=== PATIENT | female | born 2000 | race Caucasian/White ===

== ENCOUNTER 2023-04-01 07:49 | Outpatient (RCR) | payer BC, SELFPAY ==
--- NOTE | 2023-04-01 08:52 | OPREHPOC ---
Outpatient Therapy Plan of Care This is a Multidisciplinary Plan of Care that may contain components documented by all disciplines (PT, OT, and ST.) PT Problem 1 PT Problem #1 Knowledge Deficit PT Goal 1 Goal *indep with HEP *good understanding of managing vestibular issues PT Problem 2 PT Problem #2 Impaired Vestibular Syste PT Goal 1 Goal decrease vestibular symptoms, to improve mobility and activity level: 1* Dizziness Handicap Index score of 16/100 no symptoms with: 2* supine to sit 3* sit to stand 4* walking 50' with head turns R/L 3x each 5* walking 50' with head motions up/down 3x each 6*picking something up off floor
--- NOTE | 2023-04-01 08:52 | PTOPEVAL1 ---
Assessment and note entered by Mallory Buckley, PT Evaluation Information Assessment Status Evaluation Diagnosis dizziness, imbalance Onset September 2022 Subjective Information slow progression of dizziness, since September- gradual increase; no history of dizziness; does have car sickness and motion sickness take meds for control, migraines and anxiety symptoms: spinning and disoriented- last 10-15 min at most increase symptoms: not consistent- sit>stand, when wake up in AM, lie down to standing; is worst first thing in AM and at the end of day--better mid day; decrease symptoms: hold still , sit and relax 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 Self assessment Dizziness Handicap Index score of 40/100 Her risk factors include: sinus issues, migraines- now managed by meds, history of car sickness. With the evaluation, the Sania Hallpike test was positive to the R, for Ant/post canal/ BPPV; Eply performed with good clearing Education and issued handouts: general vestibular system, BPPV, post Eply precautions, safety precautions, Kristofer Earl for home clearance; To talk with pharmacist about over the counter allergy/sinus meds that would be good with her current scripts. Skilled PT services are indicated for vestibular rehab. She is to call for questions, or additional appointments as vestibular symptoms increase. Plan of Care Interventions Neuro Re-education,Patient Education, Therapeutic Exercise PT Services Indicated Yes Treatment Frequency and 0-2x/wk, depending upon her vestibular symptoms Duration The
--- NOTE | 2023-05-02 11:14 | PTOPDC ---
Assessment and note entered by Mallory Buckley, PT Discharge Information Assessment PT Clinical Summary Phuong received the PT evaluation for BPPV on 04-01-23 and did not require any further treatment. Discharge PT at this time; the goals were not addressed. Plan of Care PT Services Indicated No
== END 2023-05-02 14:26 | disposition home or self-care (01) ==
LOC: ANHPT 07:49
PROVIDERS: Visit Provider Otolaryngology
DX: H81.11 Benign paroxysmal vertigo, right ear (principal)
CPT/HCPCS: 95992; 97161

== ENCOUNTER 2024-06-17 01:23 | Day surgery (SDC) | payer OTHER, SELFPAY ==
[2024-05-31 13:08] VITALS: BMI 26.6
--- OUTSIDE RECORDS SUMMARY | 2024-06-17 01:26 | XMS_ITS | Referral Summary ---
Author Organization [facility] [address] Address [address] [place] [address] Phone Care Team Providers Care Financial Secretary Name Role Phone Sonia Stallworth OBEDIENCE TRAINER Primary Care Provider [phone] Encounters Date Type Department Care Team Description 06/16/2024 1:30 PM BURNISHER Telemedicine [facility] General Neurology [address] [place] [phone] Richard Mcclendon MD Intractable migraine with aura without status migrainosus (Primary Dx) 05/10/2024 Telephone [facility] General Neurology [address] [place] [phone] Richard Mcclendon MD Emgality PA 05/10/2024 Telephone [facility] General Neurology [address] [place] [address] Advanced Medicine 6th [place] [address] [place] [phone] Kristine Abdi RN 04/16/2024 2:00 PM BURNISHER Office Visit [facility] Primary Care at [address] [place] [address] Serenity Islas NP Abdominal pain, RLQ (right lower quadrant) (Primary Dx); Gastroesophageal reflux disease without esophagitis 04/13/2024 1:26 PM BURNISHER - 04/13/2024 6:19 PM BURNISHER Emergency [facility] Emergency Department [address] [place] [address] Petey Bautista MD Abdominal pain (Primary Dx) Discharge Disposition: Discharge to home or self care from Last 3 Months Allergies Active Allergy Reactions Criticality Noted Date Comments Rimegepant Other (See comments) Low 01/02/2024 Hair loss Medications albuterol HFA (PROVENTIL HFA,VENTOLIN HFA,PROAIR HFA) 90 mcg/actuation inhaler Inhale 2 puffs every 6 (six) hours as needed for wheezing 3 each 4 10/06/19 24 025 Active valACYclovir (VALTREX) 1 gram tablet 1 tablet (1,000 mg total) 08/26/19 24 Active galcanezumab-gnlm (Emgality Syringe) 120 mg/mL syringeIndication s:Migraine Prevention Inject 240 mg under the skin every 30 (thirty) days for 30 days, THEN 120 mg every 30 (thirty) days. 01/02/20 24 025 Active metoprolol XL (TOPROL-XL) 25 mg extended release tabletIndications :POTS (postural orthostatic tachycardia syndrome) Take 2 tablets (50 mg total) by mouth daily 01/02/20 24 Active ubrogepant (Ubrelvy) 100 mg tabletIndications :Intractable migraine with aura without status migrainosus Take 1 tablet (100 mg total) by mouth once as needed for migraine May repeat dose once in 2 hours if no relief. Do not exceed 2 doses in 24 hours. 01/02/20 24 025 Active drospirenone-ethi nyl estradioL (Marissa, 28,) 3-0.02 mg per tabletIndications :Oral contraceptive pill surveillance Take 1 tablet by mouth daily 28 tablet 12 02/02/20 24 Active acetaminophen-cod eine (TYLENOL with CODEINE #3) 300-30 mg per tablet Take 1 tablet by mouth every 4 (four) hours as needed for pain 30 tablet 02/23/20 24 Active busPIRone (BUSPAR) 10 mg tabletIndications :Anxiety Take 1 tablet (10 mg total) by mouth 2 (two) times a day 180 tablet 1 03/12/20 24 025 Active psyllium (METAMUCIL) powder Take 1 packet by mouth 3 (three) times a day 283 g 12/10/20 24 025 Active metoprolol XL (TOPROL-XL) 50 mg extended release tablet Take 1 tablet (50 mg total) by mouth every morning 03/23/[address] (PROTONIX) 40 mg EC tabletIndications :Gastroesophageal reflux disease without esophagitis TAKE 1 TABLET(40 MG) BY MOUTH DAILY 30 tablet 1 05/10/19 25 Active HYDROcodone-aceta minophen (NORCO) 5-325 mg per tabletIndications :Pain Take 1 tablet by mouth every 6 (six) hours as needed for pain 20 tablet 04/13/20 24 025 Discontinued Active Problems Problem Noted Date Diagnosed Date Abdominal pain, RLQ (right lower quadrant) 04/16 Liver lesion 02/19/2024 Assessment & Plan (02/19/2024 11:34 AM CDT): Liver lesion likely hemangioma was initially seen on US. Patient underwent MRI abd that did not show any liver lesions. I suspect lesion may have been cyst with debris that has since resolved. Regardless, no concerning lesions were seen on MRI. I recommended patient get another US in 6 months to confirm there is nothing concerning. If lesion is again seen, will get MRI with eovist here. No follow-up visit is needed at this time. Abdominal pain 02/19/2024 Assessment & Plan (02/19/2024 11:37 AM CDT): Patient with abdominal pain x 3 months. She has not noticed a correlation to diet, bowel movements, activity, etc. MRI was normal, no acute findings. Placed order for TGG-IgA ab to rule out celiac. Recommended she follow up with local GI provider. Placed referral here but informed patient that waiting time is quite long, at least over 6 months. She will try to find someone locally in the meantime. If symptoms become severe, she is to go to ED for further workup. Gastroesophageal reflux disease without esophagi tis 10/23/2023 Assessment & Plan (10/23/2023 3:38 PM CDT): Can stop the famotidine and start on pantoprazole 40 mg daily. Medication as prescribed. Lifestyle changes for GERD:Do not lay down within 30 minutes after eating. Do not eat within 3 hours of going to sleep. Elevate the head of the bed (the actual bed itself, not your head with increased pillows, this actually worsens the problem). Avoid spicy foods, alcohol, or any foods that worsen indigestion. Avoid overfilling your stomach, eating more frequent, smaller meals is preferred. Sinus bradycardia by electrocardiogram Anterior pleuritic pain 10/13/2023 Anxiety 02/19/2023 Assessment & Plan (03/19/2023 5:19 PM BURNISHER): Chronic. SAIGE 7 score 9. Mild anxiety. PHQ 2 score 0 Increase Buspar 10mg BID. Risks/benefits and alternatives discussed Consider counseling. Can try [facility] or contact insurance for a list of providers Monitor symptoms. In clinic follow-up 6 weeks Assessment & Plan (02/19/2023 1:27 PM CDT): Chronic. SAIGE 7 score 15. Moderate anxiety. PHQ 2 score 0 Start Buspar 5mg BID. Risks/benefits and alternatives discussed Consider counseling. Can try [facility] or contact insurance for a list of providers Monitor symptoms. Telehealth follow-up 4 weeks Annual physical exam 01/21/2023 Assessment & Plan (01/21/2023 12:24 PM CDT): Doing well. BMI: 21.8 (Normal) Routine labs ordered - Recent labs reviewed Preventative Screening Due: Pap due, referred to [employer] Dietary and exercise recommendations given today. Recommend exercise at least 30 minutes moderate to vigorous exercise and some strength training most days of the week. (minimum 150 minutes weekly) Discussed MyPlate recommendations and increasing fruits and vegetables Vaccines due - TDAP, Flu RTC annually for f/u Intractable migraine with aura without status mi grainosus 12/10/2022 Assessment & Plan (10/23/2023 3:34 PM CDT): This is being followed by Neurology. She reports good results with the Emgality with taking Ubrelvy p.r.n.. Assessment & Plan (02/19/2023 1:30 PM CDT): Chronic and improved daily migraine headaches Routine labs normal. MRI ordered by neurology was WNL. Continue Propanolol 60mg daily. Continue Ubrevly as needed for acute migraine Follow-up with neurologist as instructed Can also use Tylenol 500-1000mg q8h or Alleve OTC b.i.d. prn. Assessment & Plan (12/12/2022 11:45 AM CDT): Symptoms sound concurrent with migraines. No neurological deficits or acute findings on exam. Recent labs wre unremarkable. Will Rx Maxalt as needed. Continue Naproxen PRN as well. Headache diary would be helpful to help ID triggers. Limit caffeine and salt. Avoid stress, stay hydrated. Follow in 2 weeks. POTS (postural orthostatic tachycardia syndrome) 11/19/2022 Assessment & Plan (01/02/2024 12:42 PM CDT): >>ASSESSMENT AND PLAN FOR PERSISTENT POSTURAL-PERCEPTUAL DIZZINESS WRITTEN ON 11/19/2022 5:04 PM BY JOHNATHON CASTRO MD Acute. Dx:orthostatic vs metabolic abnormality vs idiopathic vs vertigo. PE WNL today Start symptom log to help ID triggers Routine labs ordered Meclizine 25mg daily prn risks/benefits and alternatives discussed Follow-up 1 month Assessment & Plan (01/02/2024 12:42 PM CDT): >>ASSESSMENT AND PLAN FOR PERSISTENT POSTURAL-PERCEPTUAL DIZZINESS WRITTEN ON 12/12/2022 11:46 AM BY ROSSY HURTADO NP Likely related to migraines, see plan above. Continue meclizine PRN. Assessment & Plan (01/02/2024 12:42 PM CDT): >>ASSESSMENT AND PLAN FOR PERSISTENT POSTURAL-PERCEPTUAL DIZZINESS WRITTEN ON 12/17/2022 5:14 PM BY NEFTALI BOYLE MD Patient dizziness the meclizine is making her sleepy which is a known side effect the dizziness in some ways is just his aggravating as her headaches. No changes in therapy for dizziness was a today's visit was trying to get better control of headache advised patient's dizziness is not a typical finding with migraines . Assessment & Plan (01/02/2024 12:42 PM CDT): >>ASSESSMENT AND PLAN FOR PERSISTENT POSTURAL-PERCEPTUAL DIZZINESS WRITTEN ON 12/25/2022 8:52 AM BY JOHNATHON CASTRO MD Acute. Dx:orthostatic vs metabolic abnormality vs idiopathic vs vertigo vs intracranial mass. Vertigo most likely but not consistent with BPPV and no tinnitus or hearing loss endorsed. PE WNL today and patient currently without symptoms. Meclizine caused side effects in the past. Routine labs reviewed. Will obtain CT w contrast to further eval Refer to neurology for eval/treatment Follow-up 1 month Assessment & Plan (01/02/2024 12:42 PM CDT): >>ASSESSMENT AND PLAN FOR PERSISTENT POSTURAL-PERCEPTUAL DIZZINESS WRITTEN ON 01/21/2023 12:29 PM BY JOHNATHON CASTRO MD Acute. Dx:orthostatic vs metabolic abnormality vs idiopathic vs vertigo vs intracranial mass. Vertigo most likely but not consistent with BPPV and no tinnitus or hearing loss endorsed. Routine labs reviewed and normal. CT head normal Scheduled eval with Neurology Follow-up 1 month Assessment & Plan (01/02/2024 12:42 PM CDT): >>ASSESSMENT AND PLAN FOR PERSISTENT POSTURAL-PERCEPTUAL DIZZINESS WRITTEN ON 07/16/2023 3:01 PM BY JOHNATHON CASTRO MD Acute. Dx:orthostatic vs POTS vs idiopathic vs vertigo vs intracranial mass. Routine labs reviewed and normal. MRI with no acute intracranial abnormality Continue to follow up with Neurology Will refer to Cards for evaluation. Follow-up 2 months Assessment & Plan (10/23/2023 3:35 PM CDT): This is managed by Cardiology. RRR upon examination. Continue metoprolol XL 25 mg daily. Resolved Problems Problem Noted Date Diagnosed Date Resolved Date BMI 25.0-25.9,adult 10/23/2023 01/02/20 24 Assessment & Plan (10/23/2023 3:38 PM CDT): BMI 25.25 Costochondritis 10/23/2023 01/02/2024 Assessment & Plan (10/23/2023 3:40 PM CDT): Discussed diagnosis. Avoid NSAIDs related to reflux. Treat with Medrol Dosepak. Heat/ice to ribs. APAP p.r.n. for pain. Follow-up if symptoms are not resolving Acute chest pain 10/13/2023 01/02/2024 Assessment & Plan (10/23/2023 3:38 PM CDT): Anterior chest pain could be related to GERD. Not related to cardiac per ER evaluation on 10/13/2023. If symptoms are not resolving, she needs to follow up. Weakness of both arms 12/25/20222023 Assessment & Plan (12/25/2022 8:54 AM CDT): Subjective weakness to varying degrees in bilateral upper extremity. No weakness noted on physical exam today. Will check vitamin-D and vitamin B12/folate levels given previous CBC with elevated MCV. H&H was normal and patient takes supplements -CT head and neurology referral placed -will follow-up results Daily headache 11/19/2022 12/10/2023 Assessment & Plan (07/16/2023 3:03 PM CDT): Acute and ongoing Failed Maxalt, Imitrex and Nurtec 75mcg. Improved with propranolol 60 mg daily however noting bradycardia so transitioned to Effexor Increase Effexor XR 150 mg daily. Risks/benefits and alternatives discussed Continue Ubrelvy 100 mg as needed for acute migraine Can also use Tylenol 500-1000mg q8h or Alleve OTC b.i.d. prn. Keep follow-up scheduled with Neurology F/u 8 weeks Assessment & Plan (01/21/2023 12:28 PM CDT): Acute and ongoing Failed Maxalt and Imitrex but Improved some with Nurtec 75mcg. Symptoms consistent with a migraine but also with nausea.? Abdominal Migraine headache. Routine labs normal. No focal neurological findings on previous PE. Start propranolol 10 mg b.i.d. taper. Risks/benefits and alternatives discussed. Continue Nurtec 75 mg daily as needed for migraine Schedule with new neurologist or contact insurance for name of available provider Can also use Tylenol 500-1000mg q8h or Alleve OTC b.i.d. prn. F/u 4 weeks for re-eval or sooner if symptoms worsen. Assessment & Plan (12/25/2022 8:50 AM CDT): Acute recurrent. Failed Maxalt but Improved with Nurtec 75mcg. Symptoms consistent with a migraine but also with nausea.? Abdominal Migraine headache. Routine labs normal. No focal neurological findings on PE. Rec trial Imitrex 50mg had start of headache. Risks/benefits and alternatives discussed. Samples of Nurtec given to take if symptoms persist despite use of Imitrex. Risks/benefits and alternatives discussed. Routine labs ordered Can also use Tylenol 500-1000mg q8h or Alleve OTC b.i.d. prn. F/u 4 weeks for re-eval or sooner if symptoms worsen. Assessment & Plan (12/17/2022 5:13 PM CDT): Patient has continued to have headaches 5-6 days per week headaches of bilateral from associated with photophobia sometimes also nausea patient associates headaches with dizziness dizziness can occur in absence headaches. Patient is given Maxalt minimal relief leave on some occasions has helped. Patient's headaches have any impact on her life in terms of interfering with work overall well-being neurological exam is normal I gave this patient samples of Nurtec 75 mg. One per day a give a total of 6 tablets progress report several days. Attack is approved for acute migraine as well as prevention. Not to take the Maxalt while taking Nurtec. Assessment & Plan (11/19/2022 5:06 PM CDT): Acute recurrent.? Abdominal Migraine headache No focal neurological findings on PE. Start log to help ID triggers Routine labs ordered Consider abortive medication if symptoms persist and labs all negative. Can also use Tylenol 500-1000mg q8h or Alleve OTC b.i.d. prn. F/u 4 weeks for re-eval or sooner if symptoms worsen. Immunizations Name Administration Dates Next Due DTaP 12/02/2003, 0,06/14/1999,04/19,01/30/1999 HPV9 06/25/2016,02/14/2016,12/13/2015 Hep B, Adolescent or Pediatric 03/03/2000,1998,01/30/1999 HiB 03/03/2000,04/19/1999,01/30/1999 IPV 12/02/2003, 0,04/19/1999,01/30 Influenza LAIV (Nasal) 03/09/2012,2010,02/16/2010,02/13 Influenza, Live, Intranasal, Quadrivalent 02/24/2014,02/15/2013 Influenza, Live, Trivalent, Intranasal 1 05/09/2011,03/11/2011,02/16/2010,02/13 Influenza, Split 03/10/2008,03/26/2002, 2 Influenza, Unspecified 04/16/2024(Deferr ed: Patient Refused),04/16/2024(Deferred: Patient Refused),03/06/2023(Deferred: Patient Refused),02/10/2023(Deferred: Patient Refused),02/10/2023(Deferred: Patient Refused),02/10/2023(Deferred: Patient Refused),02/02/2022(Deferred: Patient Refused) MMR 12/02/2003,12/05/1999 Meningococcal MCV4P (Menactra) 12/13/2015 Tdap 11/17/2010 Varicella 12/13/2015,11/17/2010,12/05/1999 Social History Tobacco Use Types Packs/Day Years Used Date Smoking Tobacco: Never Passive Smoke Exposure: Never Smokeless Tobacco: Never Tobacco Cessation:Counseling Given: Not Answered Alcohol Use Standard Drinks/Week Comments Not Asked 0 (1 standard drink = 0.6 oz pur e alcohol) Very seldom AUDIT-C Answer Date Recorded Q1: How often do you have a drink containing alc ohol? Monthly or less 01/02/2024 Q2: How many drinks containi ng alcohol do you have on a typical day when you are drinking? 1 or 2 01/02/2024 Q3: How often do you have si x or more drinks on one occasion? Never 01/02/2024 PHQ-2 Answer Date Recorded PHQ-2 Total Score (If total score is 3 or more points, staff should administer the PHQ-9) 0 01/02/2024 Personal Safety Answer Date Recorded Have you ever been in or are you currently in a harmful physical or emotional relationship or is someone making you feel afraid or unsafe? Denies 04/13/2024 Comments No Sex and Gender Information Value Date Recorded Sex Assigned at Not on file Legal Sex Female 12:46 PM BURNISHER Gender Identity Not on file Sexual Orientation Not on file Last Filed Vital Signs Vital Sign Reading Time Taken Comments Blood Pressure 120/72 04/16/2024 1:53 PM BURNISHER Pulse 69 04/16/2024 1:53 PM BURNISHER Temperature 36.7 C (98 F) 04/16/2024 1:53 PM BURNISHER Respiratory Rate 16 04/13/2024 8:14 AM BURNISHER Oxygen Saturation 98% 04/16/2024 1:53 PM BURNISHER Inhaled Oxygen Concentration - - Weight 70.5 kg (155 lb 8 oz) 04/16/2024 1:53 PM BURNISHER Height 162.6 cm (5' 4.02 ) 04/16/2024 1:53 PM CS T Body Mass Index 26.68 04/16/2024 1:53 PM BURNISHER Plan of Treatment Not on file Procedures Procedure Name Priority Date/Time Associated Diagnosis Comments US PELVIS W ENDOVAGINAL ED 04/13/2024 5:[address] ABDOMEN PELVIS W CONTRAST ED 04/13/2024 3:05 PM BURNISHER N. GONORRHOEAE/C. TRACHOMATIS AMPLIFICATION STAT 04/13/2024 2:57 PM BURNISHER POCT HCG, URINE Routine 04/13/2024 1:47 PM BURNISHER URINALYSIS, MICROSCOPIC ONLY STAT 04/13/2024 1:44 PM BURNISHER URINALYSIS AND REFLEX TO MICROSCOPIC AND CULTURE STAT 04/13/2024 1:44 PM BURNISHER ERYTHROCYTE SEDIMENTATION RATE Add-On 04/13/2024 8:19 AM BURNISHER CRP (ACUTE PHASE) Add-On 04/13/2024 8:1 9 AM BURNISHER EGFR STAT 04/13/2024 8:19 AM BURNISHER DIFFERENTIAL AUTO STAT 04/13/2024 8:1 9 AM BURNISHER LIPASE STAT 04/13/2024 8:19 AM BURNISHER COMPREHENSIVE METABOLIC PANEL STAT 04/13/2024 8:19 AM BURNISHER CBC WITH AUTO DIFFERENTIAL STAT 04/13/2024 8:19 AM BURNISHER HEPATITIS C ANTIBODY Routine 02/26/2024 2:19 PM CDT Encounter for hepatitis C screening test for low risk patient PAP WITH REFLEX TO HIGH RISK HPV Routine 01/31/2023 10:14 AM CDT Screening for malignant neoplasm of cervix from Last 3 Months or Most Recently Relevant to Health Maintenance Results * US Pelvis W Endovaginal (04/13/2024 5:07 PM BURNISHER) Anatomical Region Laterality Modality Pelvis N/A Ultrasound 04/13/2024 5:48 PM BURNISHER Narrative 04/13/2024 5:50 PM BURNISHER EXAM DESCRIPTION: US PELVIS W ENDOVAGINAL REASON FOR STUDY: Ovarian torsion, off and on pain for 2 mo right TECHNIQUE: Grayscale ultrasound of the pelvic contents was performed with transabdominal and transvaginal transducer. COMPARISON: CT abdomen and pelvis 04/13/2024 FINDINGS: UTERUS: The uterus is anteverted. The uterus is homogenous in echotexture and measures 3.1 x 4.5 x 6.9 cm. ENDOMETRIUM: The endometrium measures 0.2 cm in thickness. RIGHT OVARY: The right ovary measures 2.6 x 1.6 x 2.1 cm. There is documentation of color Doppler flow in the right ovary. The right ovary appears unremarkable. LEFT OVARY: The left ovary measures 2.1 x 1.5 x 1.8 cm. There is documentation of color Doppler flow in the left ovary. The left ovary appears unremarkable. PELVIC FLUID: There is no evidence of free fluid in the pelvis. OTHER: Prominent pelvic vasculature. IMPRESSION: No acute abnormality. THIS IS AN ELECTRONICALLY VERIFIED FINAL REPORT 04/13/2024 5:50 PM - Electronically signed by Dalila Navarrete M.D. FT: FT Report ID: [id number] Reading Location: [id number] Procedure Note Dalila Leung MD - 04/13/2024 EXAM DESCRIPTION: US PELVIS W ENDOVAGINAL REASON FOR STUDY: Ovarian torsion, off and on pain for 2 mo right TECHNIQUE: Grayscale ultrasound of the pelvic contents was performed with transabdominal and transvaginal transducer. COMPARISON: CT abdomen and pelvis 04/13/2024 FINDINGS: UTERUS: The uterus is anteverted. The uterus is homogenous inechotexture and measures 3.1 x 4.5 x 6.9 cm. ENDOMETRIUM: The endometrium measures 0.2 cm in thickness. RIGHT OVARY: The right ovary measures 2.6 x 1.6 x 2.1 cm. There is documentation of color Doppler flow in the right ovary. The right ovary appears unremarkable. LEFT OVARY: The left ovary measures 2.1 x 1.5 x 1.8 cm. There is documentation of color Doppler flow in the left ovary. The left ovaryappears unremarkable. PELVIC FLUID: There is no evidence of free fluid in the pelvis. OTHER: Prominent pelvic vasculature. IMPRESSION: No acute abnormality. THIS IS AN ELECTRONICALLY VERIFIED FINAL REPORT 04/13/2024 5:50 PM - Electronically signed by Dalila Navarrete M.D. FT: FT Report ID: [id number] Reading Location: [id number] us Petey Bautista MD IMG US PROCEDURES Final Res ult * CT Abdomen Pelvis W Contrast (04/13/2024 3:05 PM BURNISHER) Anatomical Region Laterality Modality Body N/A Computed Tomogra phy 04/13/2024 3:48 PM BURNISHER Narrative 04/13/2024 3:52 PM BURNISHER EXAM DESCRIPTION: CT ABDOMEN PELVIS W CONTRAST REASON FOR STUDY: RLQ abdominal pain RLQ pain started over 3 months ago but increased last night with nausea. TECHNIQUE: CT scan of the abdomen and pelvis performed with intravenous and without oral contrast using helical scanning technique with dynamic intravenous contrast injection. Reconstructed coronal and sagittal MPR images reviewed. All images stored on PACS. Automated exposure control was used as a dose optimization technique for this examination. CONTRAST TYPE/DOSE: 75mL of IOVERSOL 350 MG IODINE/ML INTRAVENOUS SYRINGE injected via intravenous COMPARISON: Correlation is made with ultrasound abdomen from 01/09/2024 and MRI abdomen from 01/28/2024 FINDINGS: LOWER CHEST: No acute findings. LIVER: Normal. GALLBLADDER: Normal. SPLEEN: Normal. PANCREAS: Normal. ADRENALS: Normal. KIDNEYS/URINARY TRACT: Normal. GI: No bowel obstruction. Normal appendix. PERITONEUM: No free intraperitoneal air or free fluid. REPRODUCTIVE: Normal. VASCULATURE: No abdominal aortic aneurysm. MUSCULOSKELETAL: No acute skeletal abnormality. OTHER: No other abnormality. IMPRESSION: No acute findings to explain the reported symptoms. THIS IS AN ELECTRONICALLY VERIFIED FINAL REPORT 04/13/2024 3:52 PM - Electronically signed by Danny Gilbert M.D. JR: Report ID: [id number] Reading Location: [id number] Procedure Note Danny Gilbert MD - 04/13/2024 EXAM DESCRIPTION: CT ABDOMEN PELVIS W CONTRAST REASON FOR STUDY: RLQ abdominal pain RLQ pain started over 3 months ago but increased last night with nausea. TECHNIQUE: CT scan of the abdomen and pelvis performed with intravenousand without oral contrast using helical scanning technique with dynamic intravenous contrast injection. Reconstructed coronal and sagittal MPRimages reviewed. All images stored on PACS. Automated exposure control was used as a dose optimization technique forthis examination. CONTRAST TYPE/DOSE: 75mL of IOVERSOL 350 MG IODINE/ML INTRAVENOUSSYRINGE injected via intravenous COMPARISON: Correlation is made with ultrasound abdomen from 01/09/2024nd MRI abdomen from 01/28/2024 FINDINGS: LOWER CHEST: No acute findings. LIVER: Normal. GALLBLADDER: Normal. SPLEEN: Normal. PANCREAS: Normal. ADRENALS: Normal. KIDNEYS/URINARY TRACT: Normal. GI: No bowel obstruction. Normal appendix. PERITONEUM: No free intraperitoneal air or free fluid. REPRODUCTIVE: Normal. VASCULATURE: No abdominal aortic aneurysm. MUSCULOSKELETAL: No acute skeletal abnormality. OTHER: No other abnormality. IMPRESSION: No acute findings to explain the reported symptoms. THIS IS AN ELECTRONICALLY VERIFIED FINAL REPORT 04/13/2024 3:52 PM - Electronically signed by Danny Gilbert M.D. JR: Report ID: [id number] Reading Location: [place] [address] Janet George MD IMG CT PROCEDURES Final R esult * N. gonorrhoeae/C. trachomatis Amplification Urine (04/13/2024 2:57 PM BURNISHER) C. trachomatis Not Detected Not Detected N. gonorrhoeae Not Detected Not Detected TERRI[facility]CDOWELL ([place]) Comment: Interpretive Data This assay detects Chlamydia trachomatis and Neisseria gonorrhoeae by nucleic acid amplification testing (NAAT). This assay has been cleared by the [place] Food and Drug administration. The performance characteristics of this test have been verified by the [facility]. The performance characteristics of this test have not been evaluated in individuals less than 14 years of age. Current Interpretive Data last revised 2023. Urine (None) 04/13/2024 2:57 PM BURNISHER 04/13/2024 3:10 PM BURNISHER Petey Bautista MD LAB MICROBIOLOGY - GENERAL ORDERABLES Final Result [facility] MCDOWELL ([place]) 1 [facility] [place] [address] * POCT hCG, urine (04/13/2024 1:47 PM BURNISHER) HCG, ur, POC Negative Negative Lot Number [id number] QC Backgroud Clear Acceptable QC Control Line Acceptable Urine 04/13/2024 1:47 PM BURNISHER Petey Bautista MD POINT OF CARE TEST ORDERABL ES Final Result * (ABNORMAL) Urinalysis reflex to microscopic and culture Urine (04/13/2024 1:44 PM BURNISHER) Color, ur Yellow Yellow Clarity, ur Clear Clear [facility] ([place]) Specific gravity, ur 1.018 1.003 - 1.030 [facility] ([place]) pH, urine 7.5 [facility] ([place]) Comment: Interpretive Data U rine pH is affected by diet, medications, systemic acid-base disturbances, and renal tubular function. pH may affect urinary stone formation. For example, urine pH below 6.0 may help reduce the tendency for calcium phosphate stones and pH greater than 6.0 may reduce the tendency for uric acid stone formation. Source: [place] [employer] Current Interpretive Data was last revised on 2017 Protein, ur ql Negative Negative [facility] ([place]) Glucose, ur ql Negative Negative [facility] ([place]) Ketones, ur Negative Negative [facility] ([place]) Bilirubin, ur Negative Negative [facility] ([place]) Blood, ur Negative Negative [facility] ([place]) Urobilinogen, ur <2.0 <2.0 mg/dL [facility] ([place]) Nitrite, ur Positive(A) Negative [facility] ([place]) Leukocyte esterase, ur Negative Negative [facility] ([place]) UA reflex comment Reflex to microscopic UA will be performed. [facility] ([place]) Urine 04/13/2024 1:44 PM BURNISHER 04/13/2024 1:50 PM BURNISHER Petey Bautista MD LAB MICROBIOLOGY - GENERAL ORDERABLES Final Result [facility]) 1 [facility] [place] [address] * (ABNORMAL) Urinalysis, microscopic only (04/13/2024 1:44 PM BURNISHER) WBC, ur 6-10(A) 0 - 5 /HPF RBC, ur 0-2 0 - 2 /HPF [facility] ([place]) Epithelial cells, squamous, ur 1-5 0 - 5 /HPF [facility] ([place]) Culture Reflex Comment Reflex conditions for urine culture (WBC >10) not met. [facility] ([place]) Urine 04/13/2024 1:44 PM BURNISHER 04/13/2024 1:50 PM BURNISHER Petey Bautista MD LAB URINE ORDERABLES Final Result [place] [place] 1 [facility] [place] [address] * eGFR (04/13/2024 8:19 AM BURNISHER) eGFR >90 >=60 mL/min/1. 73 m2 Comment: Interpretive Data Reference Interval Normal >/= 90 mL/min/1.73m2 Mildly decreased* 60 - 89 mL/min/1.73m2 Mildly to moderately decreased 45 - 59 mL/min/1.73m2 Moderately to severely decreased 30 - 44 mL/min/1.73m2 Severely decreased 15 - 29 mL/min/1.73m2 Kidney Failure < 15 mL/min/1.73m2 *Relative to young adult level Estimated glomerular filtration rate is determined by the 2020 CKD-EPI equation recommended by the National Kidney Foundation (A Unifying Approach to GFR Estimation: Recommendations of the NKF-ASK Task Force on Reassessing the Inclusion of Race in Diagnosing Kidney Disease, JASN 2020). The CKD-EPI equation should not be used for patients with unstable renal function and has not been validated in children and those over 70. Current interpretive data was last reviewed 2021. Blood 04/13/2024 8:19 AM BURNISHER 04/13/2024 8:25 AM BURNISHER us Petey Bautista MD LAB BLOOD ORDERABLES Final Result [facility] ([place]) 1 [facility] [place] [address] * Differential, auto (04/13/2024 8:19 AM BURNISHER) Neutrophil abs 4.6 1.5 - 6.5 K/cumm Imm gran abs 0.0 0.0 - 0.1 K/cumm [facility] ([place]) Lymphocyte abs 2.1 0.8 - 3.3 K/cumm [facility] ([place]) Monocyte abs 0.4 0.2 - 0.8 K/cumm [facility] ([place]) Eosinophil abs 0.1 0.0 - 0.5 K/cumm [facility] ([place]) Basophil abs 0.0 0.0 - 0.1 K/cumm [facility] ([place]) Neutrophil pct 63.3 % [facility] ([place]) Comment: Interpretive Data Percent cell count reference ranges are not reported, since discordance with absolute values may lead to misinterpretation of CBC data. Current Interpretive Data was last revised on 2017. Imm gran pct 0.4 % [facility] ([place]) Comment: Interpretive Data Percent cell count reference ranges are not reported, since discordance with absolute values may lead to misinterpretation of CBC data. Current Interpretive Data was last revised on 2017. Lymphocyte pct 29.0 % [facility] ([place]) Comment: Interpretive Data Percent cell count reference ranges are not reported, since discordance with absolute values may lead to misinterpretation of CBC data. Current Interpretive Data was last revised on 2017. Monocyte pct 5.2 % [facility] ([place]) Comment: Interpretive Data Percent cell count reference ranges are not reported, since discordance with absolute values may lead to misinterpretation of CBC data. Current Interpretive Data was last revised on 2017. Eosinophil pct 1.5 % [facility] ([place]) Comment: Interpretive Data Percent cell count reference ranges are not reported, since discordance with absolute values may lead to misinterpretation of CBC data. Current Interpretive Data was last revised on 2017. Basophil pct 0.6 % [facility] ([place]) Comment: Interpretive Data Percent cell count reference ranges are not reported, since discordance with absolute values may lead to misinterpretation of CBC data. Current Interpretive Data was last revised on 2017. Blood 04/13/2024 8:19 AM BURNISHER 04/13/2024 8:25 AM BURNISHER us Petey Bautista MD LAB BLOOD ORDERABLES Final Result [facility] ([place]) 1 [facility] [place] [address] * CBC with auto differential (04/13/2024 8:19 AM BURNISHER) WBC 7.3 3.8 - 9.9 K/cumm Hgb 13.2 11.9 - 15.5 g/dL [facility] ([place]) Hct 38.7 35.6 - 45.5 % [facility] ([place]) Plt 308 150 - 400 K/cumm [facility] ([place]) MPV 9.3 9.1 - 12.3 fL [facility] ([place]) RBC 4.08 3.90 - 5.20 M/cumm [facility] ([place]) MCV 94.9 81.3 - 96.4 fL [facility] ([place]) MCH 32.4 27.1 - 33.3 pg [facility] ([place]) MCHC 34.1 32.3 - 35.7 g/dL [facility] ([place]) RDW CV 11.9 11.1 - 14.9 % [facility] ([place]) RDW SD 40.8 35.7 - 48.1 fL [facility] ([place]) NRBC abs 0.00 0.00 - 0.01 K/cumm [facility] ([place]) Blood (Blood, Venous) 04/13/2024 8:19 AM BURNISHER 04/13/2024 8:25 AM BURNISHER Petey Bautista MD LAB BLOOD ORDERABLES Final Result [facility] ([place]) 1 [facility] [place] [address] * Erythrocyte sedimentation rate (04/13/2024 8:19 AM BURNISHER) Pathologist [facility] Erythrocyte sedimentation rate 19 1 - 20 mm/hr Blood 04/13/2024 8:19 AM BURNISHER 04/13/2024 3:00 PM BURNISHER us Petey Bautista MD LAB BLOOD ORDERABLES Final Result Performing Organization Address City/[facility] Co de Phone Number [facility] ([place]) 1 [facility] [place] [address] * CRP (acute phase) (04/13/2024 8:19 AM BURNISHER) Pathologist [facility] CRP 5.4 <=10.0 mg/L Blood 04/13/2024 8:19 AM BURNISHER 04/13/2024 3:00 PM BURNISHER us Petey Bautista MD LAB BLOOD ORDERABLES Final Result Performing Organization Address City/[facility] Co de Phone Number [facility] ([place]) 1 [facility] [place] [address] * Lipase (04/13/2024 8:19 AM BURNISHER) Pathologist [facility] Lipase 32 10 - 99 Units/L Blood (Blood, Venous) 04/13/2024 8:19 AM BURNISHER 04/13/2024 8:25 AM BURNISHER Petey Bautista MD LAB BLOOD ORDERABLES Final Result [facility] ([place]) 1 [facility] [place] [address] * Comprehensive metabolic panel (04/13/2024 8:19 AM BURNISHER) Pathologist [facility] Sodium 139 135 - 145 mmol/L Potassium, pl 4.0 3.3 - 4.9 mmol/L [facility] ([place]) Chloride 104 97 - 110 mmol/L [facility] ([place]) CO2 24 22 - 32 mmol/L [facility]) Anion gap 11 2 - 15 mmol/L [facility] ([place]) BUN 9 6 - 25 mg/dL [facility] ([place]) Creatinine 0.86 0.60 - 1.10 mg/dL [facility] ([place]) Glucose 99 70 - 199 mg/dL [facility] ([place]) Comment: Interpretive Data Fasting glucose >/= 126 mg/dl is diagnostic for diabetes. Fasting is defined as no caloric intake for at least 8 hours. Fasting glucose between 100 mg/dl to 125 mg/dl is diagnostic of prediabetes. In a patient with classic symptoms of hyperglycemia or hyperglycemic crisis, a random glucose >/= 200 mg/dl is diagnostic for diabetes. In the absence of unequivocal hyperglycemia, results should be confirmed by repeat testing. The classification and Diagnosis of Diabetes Diabetes Care 2021; 46: S19-S40. Current interpretive data was last revised 2022. Calcium 9.4 8.5 - 10.3 mg/dL [facility] ([place]) Bilirubin, total 0.5 0.1 - 1.2 mg/dL [facility] ([place]) Protein, pl 6.8 6.5 - 8.5 g/dL [facility] ([place]) Albumin 3.9 3.5 - 5.0 g/dL [facility] ([place]) Alk phos 67 40 - 130 Units/L [facility] ([place]) ALT 11 7 - 45 Units/L [facility] ([place]) AST 13 10 - 45 Units/L [facility] ([place]) Blood (Blood, Venous) 04/13/2024 8:19 AM BURNISHER 04/13/2024 8:25 AM BURNISHER us Petey Bautista MD LAB BLOOD ORDERABLES Final Result [facility] ([place]) 1 [facility] [place] [address] * Hepatitis C antibody Blood (02/26/2024 2:19 PM CDT) Hep C Ab Nonreactive Nonreactive Comment: Interpretive Data Nonreactive: Antibodies to HCV not detected. Does NOT exclude the possibility of recent exposure to HCV. Equivocal: Equivocal for HCV antibodies. Supplemental molecular testing will be automatically performed to determine infection status in accordance with current CDC screening recommendations. Reactive: Positive for HCV antibodies. This may represent current or past HCV infection. Supplemental molecular testing will be automatically performed to determine current infection status in accordance with current CDC screening recommendations. Interpretive data was last revised on 2019. Testing performed by: [facility], [address] [place] [address]., [id number] Blood 02/26/2024 2:19 PM CDT 02/26/2024 7:56 PM CDT us Sonia Stallworth NP LAB MICROBIOLOGY - GENERAL ORDER PENNY Final Result [facility] ([place]) 1 [facility] [place] [address] * Pap with reflex to High Risk HPV and Genotyping (Cytology Component) (01/31/2023 10:14 AM CDT) Thin prep (Pap test) 01/31/2023 10:14 AM CDT 01/31/2023 10:14 AM CDT Narrative PATHOLOGY CH - 02/05/2023 2:21 PM CDT [facility] Department of Pathology [address] [place] [id number] Final Report Note to Patients: This report may contain a detailed description of human tissue sent by a health care provider to the laboratory for pathologic evaluation. The content of this report is essential for diagnosis and may provide important critical findings. This information may be unfamiliar to patients to review without a medical professional present. It is advised that the patient review this report in the presence of a health care provider who can answer questions and explain the details. Patient Name: TRELL KRISHNAMURTHY Address: [address] [place] [address] Gender: F : 2000 (Age: 22) Service: Location: N : [id number] [facility] #: [id number] Patient Type: SPECIMEN Taken: 01/31/2023 Received: 01/31/2023 Accessioned:: 02/03/2023 Reported: 02/05/2023 Physician(s): Dorene Swanson D.O. Diagnosis: SOURCE OF SPECIMEN Imaged Thinprep Pap Test w/ Reflex HPV - Assistant [employer] Cytologic Material: STATEMENT OF ADEQUACY - Specimen satisfactory for interpretation; endocervical/transformation zone component absent or insufficient GENERAL CATEGORIZATION: - Negative for intraepithelial lesion or malignancy INTERPRETATION: - Predominance of coccobacilli consistent with shift in vaginal medina. 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 It should not be the sole means by which malignant and premalignant lesions are diagnosed. Both false negative and false positive results may occur. It also has poor sensitivity for the detection of endometrial lesions and should not be used to evaluate suspected endometrial abnormalities. For these reasons it is most important to obtain Pap tests at regular intervals. The performance characteristics of some immunohistochemical stains, fluorescence in-situ hybridization tests and immunophenotyping by flow cytometry cited in this report (if any) were determined by the Surgical Pathology Department at [facility] as part of an ongoing director quality systems program and in compliance with federally mandated regulations drawn from the Clinical Laboratory Improvement Act of 1988 (CLIA '88). Some of these tests rely on the use of analyte specific reagents and are subject to specific labeling requirements by the US Food and Drug Administration. Such diagnostic tests may only be performed in a facility that is certified by the Department of Health and Human Services as a high complexity laboratory under CLIA '88. The FDA has determined that such clearance or approval is not necessary. This test is used for clinical purposes. It should not be regarded as investigational or for research. Nevertheless, federal rules concerning the medical use of analyte specific reagents require that the following disclaimer be attached to the report: This test was developed and its performance characteristics determined by the Surgical Pathology Department [facility]. It has not been cleared or approved by the U. S. Food and Drug Administration. us Danae Graham DO LAB CYTOLOGY ORDERABLES Final Result [facility] [address] [place] [address] from Last 3 Months or Most Recently Relevant to Health Maintenance Insurance [facility] [employer] PL[employer] Care Teams Financial Secretary Relationship Specialty Start Date End Date Sonia Stallworth NP [address] [place] [address] PCP - General Family Medicine 01/02/24
--- OUTSIDE RECORDS SUMMARY | 2024-06-17 01:26 | XMS_ITS | Encounter Summary ---
Author Organization [facility] Address [address] [place] [address] Care Team Providers Care Improvement Specialist Name Role Phone Sonia Stallworth SENIOR DATASTAGE DEVELOPER-DRUM SANDER Primary Care Provider [phone] Encounter Details Date Type Department Care Team (Late Contact Info) Description 09/12/2023 Lab Requisition [facility] - DermPath Lab [address] [place] [id number] Nelson Marlow MD [address] [place] [address] Social History Tobacco Use Types Packs/Day Years Used Date Smoking Tobacco: Never Smokeless Tobacco: Never Sex and Gender Information Value Date Recorded Sex Assigned at Not on file Gender Identity Not on file Sexual Orientation Not on file documented as of this encounter Plan of Treatment Upcoming Encounters Date Type Department Care Team (Late Contact Info) Description 10/11/2024 3:00 PM CDT Office Visit [facility] [address] [place] [address] Jose Crockett MD [address] [place] [phone] documented as of this encounter Procedures Procedure Name Priority Date/Time Associated Diagnosis Comments DERMATOPATHOLOGY Routine 09/10/2023 12:0 0 AM CDT documented in this encounter Results * DERMATOPATHOLOGY (09/10/2023 12:00 AM CDT) Case Report Dermatopathology Report Case: [id number] Authorizing Provider: Nelson Marlow MD Collected: 09/10/2023 12:00 AM Ordering Location: [facility] - Received: 09/12/2023 10:31 AM DermPath Lab Pathologist: Bel Chris MD Specimens: A) - Skin, right waist B) - Skin, left lower abd C) - Skin, left buttocks 1:38 PM [facility] DERMATOPATHOLOGY LABORATORY Final Diagnosis Specimen A. SKIN, right waist: INTRADERMAL MELANOCYTIC NEVUS (D22.61) Specimen B. SKIN, left lower abd: INTRADERMAL MELANOCYTIC NEVUS (D22.5) Specimen C. SKIN, left buttocks: INTRADERMAL MELANOCYTIC NEVUS (D22.5) 1:38 PM [facility] DERMATOPATHOLOGY LABORATORY Clinical History A-C: Irr Nevus 1:38 PM T DERMATOPATHOLOGY LABORATORY Gross Description Specimen A: Received is one formalin filled container labeled with the patients name and designated right waist. The specimen consists of a shave removal measuring 4x3x3 mm. Jar 0. Specimen B: Received is one formalin filled container labeled with the patients name and designated left lower abd. The specimen consists of a shave removal measuring 6x5x3 mm. Jar 0. Specimen C: Received is one formalin filled container labeled with the patients name and designated left buttocks. The specimen consists of a shave removal measuring 3x3x1 mm. Jar 0. 1:38 PM T DERMATOPATHOLOGY LABORATORY Microscopic Description Specimen A. SKIN, right waist: There are nests of cytologically bland melanocytes within the dermis that mature with depth. Specimen B. SKIN, left lower abd: There are nests of cytologically bland melanocytes within the dermis that mature with depth. Specimen C. SKIN, left buttocks: There are nests of cytologically bland melanocytes within the dermis that mature with depth. 1:38 PM [facility] DERMATOPATHOLOGY LABORATORY Disclaimer An external and internal positive and negative controls are appropriate for the histochemical, immunohistochemical and immunofluorescence stain(s) in this case (if any), except where stated explicitly. The performance characteristics of the stain(s) cited in this report were developed and its performance characteristic determined by the Dermatopathology Laboratory at [facility], directed by Dr. Elie Camacho. These tests need not be, and therefore are not, approved by the [place] Food and Drug Administration. The tests are used for clinical purposes. Billing Codes Specimen Charges Stain Charges 80594 [id number] 1 1 1 4 1:38 PM CDT DERMATOPATHOLOGY LABORATORY Embedded Images 4 1:38 PM CDT DERMATOPATHOLOGY LABORATORY Pathology/Cytology TISSUE SPECIMEN FROM SKIN / Unknown 09/10/2023 09/12/2023 10:31 AM CDT Miscellaneous samples (specimen) TISSUE SPECIMEN FROM SKIN / Unknown 09/10/2023 09/12/2023 10:31 AM CDT Miscellaneous samples (specimen) TISSUE SPECIMEN FROM SKIN / Unknown 09/10/2023 09/12/2023 10:31 AM CDT Nelson Marlow MD LAB - PATHOLOGY/CYTO LOGY ORDERABLES DERMATOPATHOLOGY LABORATORY [facility] - Department of Dermatology [facility] [address] [place] [address], [address] [phone] documented in this encounter Visit Diagnoses Not on filedocumented in this encounter Care Teams Improvement Specialist Relationship Specialty Start Date End Date Sonia Stallworth, SENIOR DATASTAGE DEVELOPER[place] [address] PCP - General Nurse Practitioner 04/21/24 documented as of this encounter
--- OUTSIDE RECORDS SUMMARY | 2024-06-17 01:26 | XMS_ITS | Patient Health Summary ---
Author Organization [facility] [employer] Address [address] [place] [address] Care Team Providers Care Motor And Generator Assembler Name Role Phone Sonia Stallworth ZAKIYA-PLANE TENDER Primary Care Provider [phone] Note from [facility],non-owned Affiliates and Associated Physician Practices is amultiple site organization consisting of ambulatory clinics and hospital sitesin [place], [place] and [place]. This disclosure is being madepursuant to the Care Everywhere program and may not contain all information available regarding this patient. Last updated 18.[facility] Allergies No known active allergies Medications * Be aware that medications may not be up to date on this document. Alwaysverify current medications with the patient. * busPIRone (Buspar) 10 MG tablet(Started 07/16/2023) * drospirenone-ethinyl estradiol (Marissa) 3-0.02 MG tablet(Started 07/16/2023) Take 1 (one) tablet by mouth once daily * meclizine (Antivert) 25 MG tablet(Started 11/19/2022) * ondansetron, disintegrating, (Zofran ODT) 4 MG tablet(Started 07/16/2023) * prochlorperazine (Compazine) 5 MG tablet(Started 07/16/2023) * Ubrelvy 100 MG tablet(Started 07/16/2023) * venlafaxine XR 24hr (Effexor XR) 75 MG capsule(Started 07/14/2023) 37.5 mg Decreasing to 37.5 as pt is coming off of medication. * Emgality 120 MG/ML SOSY(Started 08/10/2023) * albuterol HFA (Proventil; Ventolin; Proair) 108 (90 Base) MCG/ACT inhaler Inhale 2 (two) puffs by mouth every 6 hours as needed for Wheezing * benzonatate (Tessalon) 200 MG capsule(Started 10/07/2023) * famotidine (Pepcid) 20 MG tablet(Started 10/13/2023) TAKE 1 TABLET BY MOUTH TWICE DAILY DIRECTED TO HELP ALLEVIATE HEARTBURN PAIN * pantoprazole EC (Protonix) 40 MG tablet(Started 10/23/2023) Take 1 (one) tablet by mouth once daily * valACYclovir (Valtrex) 1 GM tablet(Started 08/26/2023) 1 (one) tablet * metoprolol succinate XL 24hr (Toprol XL) 50 MG tablet(Started 05/12/2024) Take 1 (one) tablet by mouth 2 times daily In the morning 3 refills by 05/12/2025 Active Problems No known active problems Social History Tobacco Use Types Packs/Day Years Used Date Smoking Tobacco: Never Smokeless Tobacco: Never Tobacco Cessation:Counseling Given: Not Answered Sex and Gender Information Value Date Recorded Sex Assigned at Not on file Gender Identity Not on file Sexual Orientation Not on file Last Filed Vital Signs Vital Sign Reading Time Taken Comments Blood Pressure 98/72 04/21/2024 2:55 PM DISTRIBUTION ANALYST Pulse 75 04/21/2024 2:55 PM DISTRIBUTION ANALYST Temperature - - Respiratory Rate - - Oxygen Saturation 97% 10/28/2023 9:44 AM CDT Inhaled Oxygen Concentration - - Weight 69.4 kg (153 lb) 04/21/2024 2:55 PM DISTRIBUTION ANALYST Height 160 cm (5' 2.99 ) 04/21/2024 2:55 PM DISTRIBUTION ANALYST Body Mass Index 27.11 04/21/2024 2:55 PM DISTRIBUTION ANALYST Procedures * DERMATOPATHOLOGY(Performed 09/10/2023) * ECHO COMPLETE(Performed 08/13/2023) Performed for POTS (postural orthostatic tachycardia syndrome) * EKG 12-LEAD(Performed 07/29/2023) Performed for POTS (postural orthostatic tachycardia syndrome) Results * DERMATOPATHOLOGY (09/10/2023 12:00 AM CDT) Case Report Dermatopathology Report Case: [id number] Authorizing Provider: Nelson Marlow MD Collected: 09/10/2023 12:00 AM Ordering Location: [facility] - Received: 09/12/2023 10:31 AM DermPath Lab Pathologist: Bel Chris MD Specimens: A) - Skin, right waist B) - Skin, left lower abd C) - Skin, left buttocks 1:38 PM T DERMATOPATHOLOGY LABORATORY Final Diagnosis Specimen A. SKIN, right waist: INTRADERMAL MELANOCYTIC NEVUS (D22.61) Specimen B. SKIN, left lower abd: INTRADERMAL MELANOCYTIC NEVUS (D22.5) Specimen C. SKIN, left buttocks: INTRADERMAL MELANOCYTIC NEVUS (D22.5) 1:38 PM T DERMATOPATHOLOGY LABORATORY Clinical History A-C: Irr Nevus [...] dermis that mature with depth. 1:38 PM CDT DERMATOPATHOLOGY LABORATORY Disclaimer An external and internal positive and negative controls are appropriate for the histochemical, immunohistochemical and immunofluorescence stain(s) in this case (if any), except where stated explicitly. The performance characteristics of the stain(s) cited in this report were developed and its performance characteristic determined by the Dermatopathology Laboratory at [facility], directed by Dr. Elie Camacho. These tests need not be, and therefore are not, approved by the [place] Food and Drug Administration. The tests are used for clinical purposes. Billing Codes Specimen Charges Stain Charges 24776 [id number] 32953 1 1 1 4 1:38 PM CDT [...] Marlow MD LAB - PATHOLOGY/CYTO LOGY ORDERABLES Performing Organization Address City/State/[facility] Co de Phone Number DERMATOPATHOLOGY LABORATORY [facility] - Department of Dermatology [facility] Medicine [address] [place] [address], [address] [phone] * ECHO COMPLETE (08/13/2023 3:43 PM CDT) BSA 1.2391126 m2 [facility] CV FUJ I PACS LV biplane EF 53 54 - 74 % [facility] CV FUJI PACS LV A2C EF 54 52 - 76 % [facility] CV FUJ I PACS LV A4C EF 52 46 - 78 % [facility] CV FUJ I PACS LV stroke vol BP 37.2 mL SSM CV FUJI PACS LV stroke vol BP index 23.7 mL/m2 SSM CV FUJI PACS LVOT stroke vol 49.65 mL SSM CV FUJI PACS LVOT stroke vol index 31.61 mL/m2 SSM CV FUJI PACS LV stroke vol 2D teich 38.104 ml SSM CV FUJI PACS LV Stroke Index 2D Teich 24.26 mL/m2 SSM CV FUJI PACS LV stroke vol index A4C MOD 39.535 ml/m2 SSM CV FUJI PACS LVIDd 4.37 3.8 - 5.2 cm SSM CV FUJI PACS LVIDs 3.43 2.2 - 3.5 cm SSM CV FUJI PACS IVSd 2D 0.766 0.6 - 0.9 cm SSM CV FUJI PACS LVPWd 0.68 0.6 - 0.9 cm SSM CV FUJI PACS Fractional Shortening 2D 22 28 - 44 % SSM CV FUJI PACS LV ESV BP 32.974 14 - 42 mL SSM CV FUJI PACS LV ESV index BP 21.0 8 - 24 mL/m2 SSM CV FUJI PACS LV ESV A2C 35.783 10 - 54 mL SSM CV FUJI PACS LV ESV index A2C 22.78 6 - 30 mL/m2 SSM CV FUJI PACS LV EDV BP 70.177 46 - 106 mL SSM CV FUJI PACS LV ESV A4C 29.465 12 - 60 mL SSM CV FUJI PACS LV ESV index A4C 18.76 7 - 35 mL/m2 SSM CV FUJI PACS LV EDV index BP 44.7 29 - 61 mL/m2 SSM CV FUJI PACS LV EDV A2C 64.725 41 - 133 mL SSM CV FUJI PACS LV EDV index A2C 41.21 26 - 74 mL/m2 SSM CV FUJI PACS LV EDV A4C 75.318 mL SSM CV FU JI PACS LV ESV 2D 48.305 14 - 42 mL SSM CV FUJI PACS LV EDV index A4C 47.95 30 - 82 mL/m2 SSM CV FUJI PACS LV ESV index 2D 30.75 8 - 24 mL/m2 SSM CV FUJI PACS LV EDV 2D 86.41 46 - 106 mL SSM CV FUJI PACS LV EDV index 2D 55.01 29 - 61 mL/m2 SSM CV FUJI PACS LVOT diam 2.0 cm SSM CV FUJ I PACS LVOT area 3.07 cm2 SSM CV FUJ I PACS LV RWT 0.311 SSM CV FUJ I PACS LV Nunes A2C 7.71 cm SSM CV F UJI PACS LV Nunes A4C 7.835 cm SSM CV F UJI PACS IVS/LVPW 1.128 SSM CV FUJ I PACS LV mass 2D 94.92 66 - 150 g SSM CV FUJI PACS LV mass index 2D 60.43 44 - 88 g/m2 SSM CV FUJI PACS MV E pk erin 68.353 cm/s SSM CV F UJI PACS MV avg E/e' ratio 4.93 SS M CV FUJI PACS MV A pk erin 48.608 cm/s SSM CV F UJI PACS MV E A ratio 1.41 SSM CV FUJI PACS MV E' lateral erin 15.765 cm/s SS M CV FUJI PACS MV DT 159 ms SSM CV FUJ I PACS MV E' septal erin 12.371 cm/s SSM CV FUJI PACS MV E/e' septal 5.525 SSM C V FUJI PACS MV E/e' lateral 4.336 SSM CV FUJI PACS TR pk erin 213.4 cm/s SSM CV FUJ I PACS LVOT pk erin 0.77 m/s SSM CV F UJI PACS LVOT mn erin 0.58 m/s SSM CV F UJI PACS LVOT mn grad 1.4 mmHg SSM CV FUJI PACS LVOT Cardiac Output 3.586 l/min SSM CV FUJI PACS LVOT Cardiac Index 2.28 l/min/m2 SSM CV FUJI PACS LA vol BP A-L 38.496 mL SSM CV FUJI PACS TV S' erin 10.957 cm/s SSM CV FUJ I PACS TAPSE 1.541 1.7 cm SSM CV [facility] I PACS AV mn grad 3 mmHg SSM CV FU JI PACS AV pk grad 5 mmHg SSM CV FU JI PACS AV mn erin 0.90 m/s SSM CV [facility] I PACS AV pk erin 1.17 m/s SSM CV [facility] I PACS AV VTI 22.65 cm SSM CV [facility] I PACS LVOT pk grad 2.387 mmHg SSM CV FUJI PACS LVOT VTI 16.18 cm SSM CV FUJ I PACS AV area cont VTI 2.2 cm2 SSM CV FUJI PACS AV area pk erin 2.0 cm2 SSM C V FUJI PACS AV Doppler erin index pk erin 0.662 SSM CV FUJI PACS Dimensionless Index 0.714 SSM CV FUJI PACS MV decel slope 431.068 cm/s2 SSM C V FUJI PACS sPAP 21.2 mmHg SSM CV FUJ I PACS RVSP 21.2 mmHg SSM CV FUJ I PACS RAP 3.0 mmHg SSM CV FUJ I PACS TR pk grad 18 mmHg SSM CV FU JI PACS PV pk erin 101.476 cm/s SSM CV FUJ I PACS PV pk grad 4 mmHg SSM CV FU JI PACS Ascending aorta 2.80 cm SSM CV FUJI PACS LA ESV A4C MOD Index 22 ml/m2 SSM CV FUJI PACS LA ESV A2C MOD Index 21 ml/m2 SSM CV FUJI PACS [id number] 6.769 cm SSM CV FUJ I PACS [id number] 6.559 cm SSM CV FUJ I PACS Prox Asc Ao Diameter Index 1.785 cm SSM CV FUJI PACS LA Size 3.045 cm SSM CV FUJ I PACS LVIDs index 2.18 1.3 - 2.1 cm/m2 SSM CV FUJI PACS LV LVIDd index 2.78 2.3 - 3.1 cm/m2 SSM CV FUJI PACS Anatomical Region Laterality Modality Ultrasound Narrative 08/13/2023 3:51 PM CDT Left Ventricle: Left ventricle size is normal. Normal wall thickness. Normal systolic function with a visually estimated EF of 60 - 65%. Normal wall motion. Normal diastolic function. Left Atrium: Left atrium size is normal. Right Ventricle: Right ventricle size is normal. Normal systolic function. Right Atrium: Right atrium size is normal. Tricuspid Valve: Trace regurgitation. Mitral Valve: Trace regurgitation. Left Ventricle Left ventricle size is normal. Normal wall thickness. Normal systolic function with a visually estimated EF of 60 - 65%. Normal wall motion. Normal diastolic function. Right Ventricle Right ventricle size is normal. Normal systolic function. Left Atrium Left atrium size is normal. Right Atrium Right atrium size is normal. IVC/SVC IVC diameter is less than or equal to 21 mm and decreases greater than 50% during inspiration; therefore the estimated right atrial pressure is normal (~3 mmHg). Mitral Valve Valve structure is normal. No restricted motion. Trace regurgitation. No stenosis. Tricuspid Valve Valve structure is normal. No restricted motion. Trace regurgitation. No stenosis. Aortic Valve Valve structure is trileaflet. No restricted motion. No regurgitation. No stenosis. Pulmonic Valve Valve structure is normal. No restricted motion. No regurgitation. No stenosis. Ascending Aorta Normal sized sinus of Valsalva (aortic root) and ascending aorta. Pericardium No pericardial effusion. Study Details Study quality was fair. A complete 2D, color Doppler, spectral Doppler and M- mode echocardiogram was performed. The apical, parasternal, subcostal and suprasternal views were obtained. Procedure Note Jose Crockett MD - 08/13/2023 Left Ventricle: Left ventricle size is normal. Normal wall thickness.Normal systolic function with a visually estimated EF of 60 - 65%. Normalwall motion. Normal diastolic function. Left Atrium: Left atrium size is normal. Right Ventricle: Right ventricle size is normal. Normal systolicfunction. Right Atrium: Right atrium size is normal. Tricuspid Valve: Trace regurgitation. Mitral Valve: Trace regurgitation. Jose Crockett MD ECHO CUPID * EKG 12-LEAD (07/29/2023) Jose Crockett MD ECG ORDERABLES [facility] RESULT SCAN Care Teams Motor And Generator Assembler Relationship Specialty Start Date End Date Sonia Stallworth, TRAINING AND DEVELOPMENT DIRECTOR-[place] [phone] PCP - General Nurse Practitioner 04/21/24
--- OUTSIDE RECORDS SUMMARY | 2024-06-17 01:26 | XMS_ITS | Clinical Summary ---
Author Organization [facility] Address [address] [place] [address] Phone Care Team Providers Care Gear Repairer Name Role Phone Stephany Farrell MD Primary Care Provider Unavailable Allergies No known active allergies Medications Shf-Ep-Ewrfkmza a 0.18/0.215/0.25 MG-25 MCG Tablet 09/11/2022 Active ofloxacin (FLOXIN) 0.3 % SolutionIndicat ions:Acute swimmer's ear of left side Place 5 Drops in affected ear(s) 2 times daily. 10 mL 11/12/2022 Active Active Problems No known active problems Social History Tobacco Use Types Packs/Day Years Used Date Smoking Tobacco: Never Smokeless Tobacco: Never Tobacco Cessation:Counseling Given: Not Answered Alcohol Use Standard Drinks/Week Comments Not Currently 0 (1 standard drink = 0.6 oz pur e alcohol) Sexually Active Control Partners Comments Not Currently Comments Unknown Sex and Gender Information Value Date Recorded Sex Assigned at Not on file Legal Sex Female 3:54 PM CDT Gender Identity Not on file Sexual Orientation Not on file Last Filed Vital Signs Vital Sign Reading Time Taken Comments Blood Pressure 112/72 11/12/2022 4:00 PM CDT Pulse 88 11/12/2022 4:00 PM CDT Temperature 36.7 C (98 F) 11/12/2022 4:00 PM CDT Respiratory Rate 16 11/12/2022 4:00 PM CDT Oxygen Saturation 95% 11/12/2022 4:00 PM CDT Inhaled Oxygen Concentration - - Weight - - Height - - Body Mass Index - - Plan of Treatment Health Maintenance Due Date Last Done Comments Hepatitis C Virus (HCV) Screening 1998 Pap Smear 11/30/2019 Influenza Immunization (#1) 01/04/202402/03, 02/15/2013, 03/09/2012, Additional history exists SARS-COV-2 Immunization (2023- season) 2024 Respiratory Syncytial Virus (RSV) Immunization (Adult) (1 - 1-dose 75+ series) 2073 Hepatitis B Immunization Completed 000, 04/19/1999, 01/30/1999 DTaP/Tdap/Td Immunization Discontinued 2010, 12/02/2003, 03/03/2000, Additional history exists TdaP Immunization Completed 11/17/2010 Meningococcal Immunization (ACWY) Completed 12/13/2015 Human Papillomavirus (HPV) Immunization Completed 06/25/2016, 02/14/2016, 12/13/2015 Pneumococcal Immunization Combined Aged Out No longer eligible based on patient's age to complete this topic Rotavirus Immunization Aged Out No lo nger eligible based on patient's age to complete this topic Insurance Care Teams Gear Repairer Relationship Specialty Start Date End Date Stephany Farrell MD PCP - General Family Medicine 11/12/22
--- OUTSIDE RECORDS SUMMARY | 2024-06-17 01:26 | XMS_ITS | Referral Summary ---
Author Organization [facility] Address [address] [place] [address] Care Team Providers Care Mold Making Plastics Sheets Supervisor Name Role Phone Sonia Stallworth SURVEYOR CHAIN HELPER-BLIND TEACHER Primary Care Provider [phone] Source Comments [facility],non-owned Affiliates and Associated Physician Practices is amultiple site organization consisting of ambulatory clinics and hospital sitesin [place], [place], [place] and [place]. This disclosure is being madepursuant to the Care Everywhere program and may not contain all information available regarding this patient. Last updated 18.[facility] Encounters Date Type Department Care Team Description 05/11/2024 Refill [facility] [address] [place] [address], [address] [address] Jose Crockett MD MEDICATION REFILL 04/26/2024 Refill [facility] [address] [place] [id number] Jose Crockett MD MEDICATION REFILL 04/22/2024 Refill [facility] [address] [place] [phone] Jose Crockett MD MEDICATION REFILL 04/21/2024 Travel 04/21/2024 2:50 PM BARBER SHOP MANAGER Office Visit [facility] [address] [address] Jose Crockett MD POTS (postural orthostatic tachycardia syndrome) (Primary Dx) 03/23/2024 Orders Only [facility] [address] [address] Jose Crockett MD 03/23/2024 Orders Only [facility] [address] [facility] [address] [place] [address] Jose Crockett MD 03/23/2024 Nurse Triage [facility] [address] [facility] [address] [place] [address] Jose Crockett MD Concerns; RAPID HEART RATE from Last 3 Months Allergies No known active allergies Medications * Be aware that medications may not be up to date on this document. Alwaysverify current medications with the patient. Medication Sig Dispensed Refills Start Date End Date Status busPIRone (Buspar) 10 MG tablet 07/16/2023 Active drospirenone-ethin yl estradiol (Marissa) 3-0.02 MG tablet Take 1 (one) tablet by mouth once daily 07/16/2023 Active meclizine (Antivert) 25 MG tablet 11/19/2022 Active ondansetron, disintegrating, (Zofran ODT) 4 MG tablet 07/16/2023 Active prochlorperazine (Compazine) 5 MG tablet 07/16/2023 Active Ubrelvy 100 MG tablet 07/16/2023 Active venlafaxine XR 24hr (Effexor XR) 75 MG capsule 37.5 mg Decreasing to 37.5 as pt is coming off of medication. 07/14/2023 Active Emgality 120 MG/ML SOSY 08/10/2023 Active albuterol HFA (Proventil; Ventolin; Proair) 108 (90 Base) MCG/ACT inhaler Inhale 2 (two) puffs by mouth every 6 hours as needed for Wheezing Active benzonatate (Tessalon) 200 MG capsule 10/07/2023 Active famotidine (Pepcid) 20 MG tablet TAKE 1 TABLET BY MOUTH TWICE DAILY DIRECTED TO HELP ALLEVIATE HEARTBURN PAIN 10/13/2023 Active pantoprazole EC (Protonix) 40 MG tablet Take 1 (one) tablet by mouth once daily 10/23/2023 10/22/2024 Active valACYclovir (Valtrex) 1 GM tablet 1 (one) tablet 08/26/2023 Active metoprolol succinate XL 24hr (Toprol XL) 50 MG tablet Take 1 (one) tablet by mouth 2 times daily In the morning 180 tablet 3 05/12/2024 Active Active Problems No known active problems [...] Comments Blood Pressure 98/72 04/21/2024 2:55 PM BARBER SHOP MANAGER Pulse 75 04/21/2024 2:55 PM BARBER SHOP MANAGER Temperature - - Respiratory Rate - - Oxygen Saturation 97% 10/28/2023 9:44 AM CDT Inhaled Oxygen Concentration - - Weight 69.4 kg (153 lb) 04/21/2024 2:55 PM BARBER SHOP MANAGER Height 160 cm (5' 2.99 ) 04/21/2024 2:55 PM BARBER SHOP MANAGER Body Mass Index 27.11 04/21/2024 2:55 PM BARBER SHOP MANAGER Plan of Treatment Upcoming Encounters Date Type Department Care Team (Late st Contact Info) Description 10/11/2024 3:00 PM CDT Office Visit [facility] [id number] [address] [place] [address] [address] Care Teams Mold Making Plastics Sheets Supervisor Relationship Specialty Start Date End Date Sonia Stallworth, SURVEYOR CHAIN HELPER-BLIND TEACHER [address] [place] [phone] PCP - General Nurse Practitioner 04/21/24
--- OUTSIDE RECORDS SUMMARY | 2024-06-17 01:26 | XMS_ITS | Clinical Summary ---
Author Organization [facility] [address] Address [address] [place] [address] Phone Care Team Providers Care Senior Audit Manager Name Role Phone Sonia Stallworth ETHYLBENZENE CONVERTER OPERATOR Primary Care Provider [phone] Allergies Active Allergy Reactions Criticality Noted Date [...] 3 (three) times a day 283 g 04/13/20 24 025 Active metoprolol XL (TOPROL-XL) 50 [...] 02/19/2023 Assessment & Plan (03/19/2023 5:19 PM SHRIMP BOAT CAPTAIN): Chronic. SAIGE 7 score 9. Mild anxiety. PHQ 2 score 0 Increase Buspar 10mg BID. Risks/benefits and alternatives discussed Consider counseling. Can try [facility] or contact insurance for a list of providers Monitor symptoms. In clinic follow-up 6 weeks Assessment & Plan (02/19/2023 1:27 PM CDT): Chronic. SAIGE 7 score 15. Moderate anxiety. PHQ 2 score 0 Start Buspar 5mg BID. Risks/benefits and alternatives discussed Consider counseling. Can try [facility] or contact insurance for a list of providers Monitor symptoms. Telehealth follow-up 4 weeks Annual physical exam 01/21/2023 Assessment & Plan (01/21/2023 12:24 PM CDT): Doing well. BMI: 21.8 (Normal) Routine labs ordered - Recent labs reviewed Preventative Screening Due: Pap due, referred to [facility] Dietary and exercise recommendations given today. Recommend [...] Date Resolved Date BMI 25.0-25.9,adult 10/23/2023 01/02/20 Assessment & Plan (10/23/2023 3:38 PM CDT): [...] for re-eval or sooner if symptoms worsen. Encounters Date Type Department Care Team Description 06/16/2024 1:30 PM SHRIMP BOAT CAPTAIN Telemedicine [facility] General Neurology [address] 6th [address] [place] [phone] Richard Mcclendon MD Intractable migraine with aura without status migrainosus (Primary Dx) 05/10/2024 Telephone [facility] General Neurology [address] [place] [phone] Richard Mcclendon MD [facility] PA 05/10/2024 Telephone [facility] Neurology [address]th [place] [address] [place] [address] Kristine Abdi RN 04/16/2024 2:00 PM SHRIMP BOAT CAPTAIN Office Visit [facility] Primary Care at [address] [place] [address] Serenity Islas NP Abdominal pain, RLQ (right lower quadrant) (Primary Dx); Gastroesophageal reflux disease without esophagitis 04/13/2024 1:26 PM SHRIMP BOAT CAPTAIN - 04/13/2024 6:19 PM SHRIMP BOAT CAPTAIN Emergency [facility] Emergency Department [address] [place] [address] Petey Bautista MD Abdominal pain (Primary Dx) Discharge Disposition: Discharge to home or self care from Last 3 Months Immunizations Name Administration Dates Next Due DTaP [...] MCV4P (Menactra) 12/13/2015 Tdap 11/17/2010 Varicella 12/13/2015,11/17/2010,12/05/1999 Medical History Medical History Date Comments Anxiety December 2022 Migraines August 2022 Family History Relation Name Status Comments Father Alive Social History Tobacco Use Types Packs/Day Years [...] on file Legal Sex Female 12:46 PM SHRIMP BOAT CAPTAIN Gender Identity Not on file Sexual Orientation Not on file Obstetrics History Para Term AB IAB SAB Ectopic Multiple Livin g Live Births 0 0 0 0 0 0 0 0 0 0 0 Last Filed Vital Signs Vital Sign Reading Time Taken Comments Blood Pressure 120/72 04/16/2024 1:53 PM SHRIMP BOAT CAPTAIN Pulse 69 04/16/2024 1:53 PM SHRIMP BOAT CAPTAIN Temperature 36.7 C (98 F) 04/16/2024 1:53 PM SHRIMP BOAT CAPTAIN Respiratory Rate 16 04/13/2024 8:14 AM SHRIMP BOAT CAPTAIN Oxygen Saturation 98% 04/16/2024 1:53 PM SHRIMP BOAT CAPTAIN Inhaled Oxygen Concentration - - Weight 70.5 kg (155 lb 8 oz) 04/16/2024 1:53 PM SHRIMP BOAT CAPTAIN Height 162.6 cm (5' 4.02 ) 04/16/2024 1:53 PM CS T Body Mass Index 26.68 04/16/2024 1:53 PM SHRIMP BOAT CAPTAIN Plan of Treatment Health Maintenance Due Date Last Done Comments DTaP/Tdap/Td Vaccine (7 - Td or Tdap) 11/17/2020 11/17/2010, 12/02/2003, 03/03/2000, Additional history exists Cervical Cancer Screening 02/01/2024 01/31/2023 Influenza Vaccine (#1) 2024 4, 02/15/2013, 03/09/2012, Additional history exists Postponed from 01/04/2024 (Patient declined, but will receive in the future) Depression Screening 01/01/2025 01/02/2024, 01/21/2023, 12/24/2022, Additional history exists Regular Well Visit/Exam 18-64 02/01/2025 02/02/2024, 01/31/2023, 01/21/2023 Hepatitis B Screening Completed 03/03/2000 , 04/19/1999, 01/30/1999 Varicella Vaccines Completed 12/13/2015, 0 11/17/2010, 12/05/1999 HPV Vaccines Completed 06/25/2016, 02/02, 12/13/2015 Hepatitis C Screening Completed 02/26/2024 Pneumococcal vaccine <65 Aged Out No longer eligible based on patient's age to complete this topic Procedures Procedure Name Priority Date/Time Associated Diagnosis Comments US PELVIS W ENDOVAGINAL ED 04/13/2024 5:07 [address] ABDOMEN PELVIS W CONTRAST ED 04/13/2024 3:05 PM SHRIMP BOAT CAPTAIN N. GONORRHOEAE/C. TRACHOMATIS AMPLIFICATION STAT 04/13/2024 2:57 PM SHRIMP BOAT CAPTAIN POCT HCG, URINE Routine 04/13/2024 1:47 PM SHRIMP BOAT CAPTAIN URINALYSIS, MICROSCOPIC ONLY STAT 04/13/2024 1:44 PM SHRIMP BOAT CAPTAIN URINALYSIS AND REFLEX TO MICROSCOPIC AND CULTURE STAT 04/13/2024 1:44 PM SHRIMP BOAT CAPTAIN ERYTHROCYTE SEDIMENTATION RATE Add-On 04/13/2024 8:19 AM SHRIMP BOAT CAPTAIN CRP (ACUTE PHASE) Add-On 04/13/2024 8:1 9 AM SHRIMP BOAT CAPTAIN EGFR STAT 04/13/2024 8:19 AM SHRIMP BOAT CAPTAIN DIFFERENTIAL AUTO STAT 04/13/2024 8:1 9 AM SHRIMP BOAT CAPTAIN LIPASE STAT 04/13/2024 8:19 AM SHRIMP BOAT CAPTAIN COMPREHENSIVE METABOLIC PANEL STAT 04/13/2024 8:19 AM SHRIMP BOAT CAPTAIN CBC WITH AUTO DIFFERENTIAL STAT 04/13/2024 8:19 AM SHRIMP BOAT CAPTAIN HEPATITIS C ANTIBODY Routine 02/26/2024 2:19 PM CDT Encounter for hepatitis C screening test for low risk patient PAP WITH REFLEX TO HIGH RISK HPV Routine 01/31/2023 10:14 AM CDT Screening for malignant neoplasm of cervix from Last 3 Months or Most Recently Relevant to Health Maintenance Results * US Pelvis W Endovaginal (04/13/2024 5:07 PM SHRIMP BOAT CAPTAIN) Anatomical Region Laterality Modality Pelvis N/A Ultrasound 04/13/2024 5:48 PM SHRIMP BOAT CAPTAIN Narrative 04/13/2024 5:50 PM SHRIMP BOAT CAPTAIN EXAM DESCRIPTION: US PELVIS W ENDOVAGINAL REASON [...] Dalila Navarrete M.D. FT: FT Report ID: [id number] Reading Location: [id number] Procedure Note Dalila Leung MD - 04/13/2024 [...] Dalila Navarrete M.D. FT: FT Report ID: [id number] Reading Location: [id number] us Petey Bautista MD IMG US PROCEDURES Final Res ult * CT Abdomen Pelvis W Contrast (04/13/2024 3:05 PM SHRIMP BOAT CAPTAIN) Anatomical Region Laterality Modality Body N/A Computed Tomogra phy 04/13/2024 3:48 PM SHRIMP BOAT CAPTAIN Narrative 04/13/2024 3:52 PM SHRIMP BOAT CAPTAIN EXAM DESCRIPTION: CT ABDOMEN PELVIS W CONTRAST [...] by Danny Gilbert M.D. JR: Report ID: [id number] Reading Location: [place] [address] Procedure Note Danny Giblert MD - 04/13/2024 EXAM DESCRIPTION: CT ABDOMEN [...] 04/13/2024 3:52 PM - Electronically signed by Dannyadria Gilbert M.D. JR: Report ID: [id number] Reading Location: [id number] Janet George MD IMG CT PROCEDURES Final R esult * N. gonorrhoeae/C. trachomatis Amplification Urine (04/13/2024 2:57 PM SHRIMP BOAT CAPTAIN) C. trachomatis Not Detected Not Detected N. gonorrhoeae Not Detected Not Detected [facility] ([place]) Comment: Interpretive Data This assay detects Chlamydia trachomatis and Neisseria gonorrhoeae by nucleic acid amplification testing (NAAT). This assay has been cleared by the [place] Food and Drug administration. The performance characteristics of this test have been verified by the [facility]. The performance characteristics of this test have not been evaluated in individuals less than 14 years of age. Current Interpretive Data last revised 2023. Urine (None) 04/13/2024 2:57 PM SHRIMP BOAT CAPTAIN 04/13/2024 3:10 PM SHRIMP BOAT CAPTAIN Petey Bautista MD LAB MICROBIOLOGY - GENERAL ORDERABLES Final Result [facility] ([place]) [address] [facility] Department [place] [address] * POCT hCG, urine (04/13/2024 1:47 PM SHRIMP BOAT CAPTAIN) HCG, ur, POC Negative Negative Lot Number [id number] QC Backgroud Clear Acceptable QC Control Line Acceptable Urine 04/13/2024 1:47 PM SHRIMP BOAT CAPTAIN Petey Batuista MD POINT OF CARE TEST ORDERABL ES Final Result * (ABNORMAL) Urinalysis reflex to microscopic and culture Urine (04/13/2024 1:44 PM SHRIMP BOAT CAPTAIN) Color, ur Yellow Yellow Clarity, ur Clear Clear [facility] ([place]) Specific gravity, ur 1.018 1.003 - 1.030 [...] tendency for uric acid stone formation. Source: [facility] Current Interpretive Data was last revised on [...] [facility] ([place]) Urine 04/13/2024 1:44 PM SHRIMP BOAT CAPTAIN 04/13/2024 1:50 PM SHRIMP BOAT CAPTAIN Petey Bautista MD LAB MICROBIOLOGY - GENERAL ORDERABLES Final Result [facility] ([place]) [address] [facility] Department of Laboratories [place], [place] [id number] * (ABNORMAL) Urinalysis, microscopic only (04/13/2024 1:44 PM SHRIMP BOAT CAPTAIN) WBC, ur 6-10(A) 0 - 5 /HPF RBC, ur 0-2 0 - 2 /HPF [facility] ([place]) Epithelial cells, squamous, ur 1-5 0 - 5 /HPF [facility] ([place]) Culture Reflex Comment Reflex conditions for urine culture (WBC >10) not met. [facility] ([place]) Urine 04/13/2024 1:44 PM SHRIMP BOAT CAPTAIN 04/13/2024 1:50 PM SHRIMP BOAT CAPTAIN us Petey Bautista MD LAB URINE ORDERABLES Final Result [facility] ([place]) [address] [facility] [place] [address] * eGFR (04/13/2024 8:19 AM SHRIMP BOAT CAPTAIN) eGFR >90 >=60 mL/min/1. 73 m2 Comment: [...] last reviewed 2021. Blood 04/13/2024 8:19 AM SHRIMP BOAT CAPTAIN 04/13/2024 8:25 AM SHRIMP BOAT CAPTAIN us Petey Bautista MD LAB BLOOD ORDERABLES Final Result [facility] ([place]) [address] [facility] Department [place] [address] * Differential, auto (04/13/2024 8:19 AM SHRIMP BOAT CAPTAIN) Neutrophil abs 4.6 1.5 - 6.5 K/cumm Imm gran abs 0.0 0.0 - 0.1 K/cumm [facility] ([place]) Lymphocyte abs 2.1 0.8 - 3.3 K/cumm [facility] ([place]) Monocyte abs 0.4 0.2 - 0.8 K/cumm [facility] ([place]) Eosinophil abs 0.1 0.0 - 0.5 K/cumm [facility] ([place]) Basophil abs 0.0 0.0 - 0.1 K/cumm [facility] ([place]) Neutrophil pct 63.3 % [facility] ([place]) Comment: Interpretive [...] revised on 2017. Blood 04/13/2024 8:19 AM SHRIMP BOAT CAPTAIN 04/13/2024 8:25 AM SHRIMP BOAT CAPTAIN us Petey Bautista MD LAB BLOOD ORDERABLES Final Result [facility] ([place]) [address] [facility] Department [place] [address] * CBC with auto differential (04/13/2024 8:19 AM SHRIMP BOAT CAPTAIN) WBC 7.3 3.8 - 9.9 K/cumm Hgb [...] ([place]) Blood (Blood, Venous) 04/13/2024 8:19 AM SHRIMP BOAT CAPTAIN 04/13/2024 8:25 AM SHRIMP BOAT CAPTAIN us Petey Bautista MD LAB BLOOD ORDERABLES Final Result [facility] ([place]) [address] [facility] [address] * Erythrocyte sedimentation rate (04/13/2024 8:19 AM SHRIMP BOAT CAPTAIN) Erythrocyte sedimentation rate 19 1 - 20 mm/hr Blood 04/13/2024 8:19 AM SHRIMP BOAT CAPTAIN 04/13/2024 3:00 PM SHRIMP BOAT CAPTAIN Petey Bautista MD LAB BLOOD ORDERABLES Final Result [facility] ([place]) [address] [facility] [address] * CRP (acute phase) (04/13/2024 8:19 AM SHRIMP BOAT CAPTAIN) [facility] CRP 5.4 <=10.0 mg/L Blood 04/13/2024 8:19 AM SHRIMP BOAT CAPTAIN 04/13/2024 3:00 PM SHRIMP BOAT CAPTAIN Petey Bautista MD LAB BLOOD ORDERABLES Final Result Performing Organization Address City/[facility]/ZIP Co de Phone Number [facility] ([place]) [address] [facility] [place] [address] * Lipase (04/13/2024 8:19 AM SHRIMP BOAT CAPTAIN) [facility] Lipase 32 10 - 99 Units/L Blood (Blood, Venous) 04/13/2024 8:19 AM SHRIMP BOAT CAPTAIN 04/13/2024 8:25 AM SHRIMP BOAT CAPTAIN Petey Bautista MD LAB BLOOD ORDERABLES Final Result Performing Organization Address [facility] de Phone Number [facility] ([place]) [address] [facility] [place] [address] * Comprehensive metabolic panel (04/13/2024 8:19 AM SHRIMP BOAT CAPTAIN) [facility] Sodium 139 135 - 145 mmol/L Potassium, pl 4.0 3.3 - 4.9 mmol/L [facility] ([place]) Chloride 104 97 - 110 mmol/L [facility] ([place]) CO2 24 22 - 32 mmol/L [facility] ([place]) Anion gap 11 2 - 15 mmol/L [facility] ([place]) BUN 9 6 - 25 mg/dL [facility] ([place]) Creatinine 0.86 0.60 - 1.10 mg/dL [facility] ([place] Glucose 99 70 - 199 mg/dL [facility] ([place]) Comment: Interpretive Data Fasting glucose >/= [...] classification and Diagnosis of Diabetes Diabetes Care 202; 46: S19-S40. Current interpretive data was last [...] ([place]) Blood (Blood, Venous) 04/13/2024 8:19 AM SHRIMP BOAT CAPTAIN 04/13/2024 8:25 AM SHRIMP BOAT CAPTAIN us Petey Bautista MD LAB BLOOD ORDERABLES Final Result [facility] ([place]) [address] [facility] Department [place] [address] * Hepatitis C antibody Blood (02/26/2024 2:19 [...] last revised on 2019. Testing performed by: [facility], [address] [place] [address], [place]., [address] Blood 02/26/2024 2:19 PM CDT 02/26/2024 7:56 PM CDT us Sonia Stallworth NP LAB MICROBIOLOGY - GENERAL ORDER PENNY Final Result [facility] ([place]) [address] [facility] Department [place] [address] * Pap with reflex to High Risk HPV and Genotyping (Cytology Component) (01/31/2023 10:14 AM CDT) Thin prep (Pap test) 01/31/2023 10:14 AM CDT 01/31/2023 10:14 AM CDT Narrative PATHOLOGY CH - 02/05/2023 2:21 PM CDT [facility] Department of Pathology [address] [place], [place] [id number] Final Report Note to Patients: This report [...] the details. Patient Name: TRELL KRISHNAMURTHY Address: [address] [place] [address] Gender: F : 2000 (Age: 22) Service: Location: [facility] : [id number] Hospital #: [id number] Patient Type: SPECIMEN Taken: 01/31/2023 Received: 01/31/2023 Accessioned:: 02/03/2023 Reported: 02/05/2023 Physician(s): Dorene Swanson D.O. Diagnosis: SOURCE OF SPECIMEN Imaged Thinprep Pap Test w/ Reflex HPV - [facility] Cytologic Material: STATEMENT OF ADEQUACY - Specimen satisfactory for interpretation; endocervical/transformation zone component absent or insufficient GENERAL CATEGORIZATION: - Negative for intraepithelial lesion or malignancy INTERPRETATION: - Predominance of coccobacilli consistent with shift in vaginal medina. Possible bacterial vaginosis HOLLY Hutton(ASCP) Report Electronically Reviewed and Signed Out By HOLLY Hutton(ASCP) 02/05/2023 14:21:14Specimen(s) Received: A: Imaged Thinprep Pap Test w/ Reflex HPV - [facility] Cytologic Material Clinical History: Last Menstrual Period: [...] determined by the Surgical Pathology Department at [facility] as part of an ongoing quality assurance assistant program and in compliance with federally mandated [...] characteristics determined by the Surgical Pathology Department [facility]. It has not been cleared or approved by the [place]. [place]. Food and Drug Administration. Danae Graham DO LAB CYTOLOGY ORDERABLES Final Result PATHOLOGY [address] [place] [address] from Last 3 Months or Most Recently Relevant to Health Maintenance Insurance [facility] CHOICE PLUS [facility] CHOICE PLUS Care Teams Senior Audit Manager Relationship Specialty Start Date End Date Sonia [place] [address] PCP - General Family Medicine 01/02/24
--- OUTSIDE RECORDS SUMMARY | 2024-06-17 01:26 | XMS_ITS | Clinical Summary ---
Author Organization [facility] Address [address] [facility] [place] [address] Care Team Providers Care Daily Release And Dupe Printer Name Role Phone Sonia Stallworth ZAKIYA-CUTTER GRINDER OPERATOR Primary Care Provider [phone] Source Comments [facility],non-owned Affiliates and Associated Physician Practices is amultiple site organization consisting of ambulatory clinics and hospital sitesin [place], [place], [place] and [place]. This disclosure is being madepursuant to the Care Everywhere program and may not contain all information available regarding this patient. Last updated [employer] [facility] Allergies No known active allergies Medications * [...] Active Active Problems No known active problems Encounters Date Type Department Care Team Description 05/11/2024 Refill [facility] [address] [address] Jose Crockett MD MEDICATION REFILL 04/26/2024 Refill [facility] [address] [place] [address] Jose Crockett MD MEDICATION REFILL 04/22/2024 Refill [facility] [address] [address] Jose Crockett MD MEDICATION REFILL 04/21/2024 2:50 PM PLACEMENT DIRECTOR Office Visit [facility] [address] [address] Jose Crockett MD POTS (postural orthostatic tachycardia syndrome) (Primary Dx) 04/21/2024 Travel 03/23/2024 Orders Only [facility] [address] [address] Jose Crockett MD 03/23/2024 Orders Only [facility] [address] [place] [id number] Jose Crocktet MD 03/23/2024 Nurse Triage [facility] [address] [facility], [address] [place] [address] Jose Crockett MD Concerns; RAPID HEART RATE from Last 3 Months Social History Tobacco Use Types Packs/Day Years Used Date Smoking Tobacco: Never Smokeless Tobacco: Never Tobacco Cessation:Counseling Given: Not Answered Sex and Gender Information Value Date Recorded Sex Assigned at Not on file Gender Identity Not on file Sexual Orientation Not on file Last Filed Vital Signs Vital Sign Reading Time Taken Comments Blood Pressure 98/72 04/21/2024 2:55 PM PLACEMENT DIRECTOR Pulse 75 04/21/2024 2:55 PM PLACEMENT DIRECTOR Temperature - - Respiratory Rate - - Oxygen Saturation 97% 10/28/2023 9:44 AM CDT Inhaled Oxygen Concentration - - Weight 69.4 kg (153 lb) 04/21/2024 2:55 PM PLACEMENT DIRECTOR Height 160 cm (5' 2.99 ) 04/21/2024 2:55 PM PLACEMENT DIRECTOR Body Mass Index 27.11 04/21/2024 2:55 PM PLACEMENT DIRECTOR Plan of Treatment Upcoming Encounters Date Type Department Care Team (Late st Contact Info) Description 10/11/2024 3:00 PM CDT Office Visit [facility] [place] [address] [facility], [address] [place] [address] [place] [phone] [address] Health Maintenance Due Date Last Done Comments HIV SCREENING 2013 HPV VACCINE (1 - 3-dose series) 2013 CHLAMYDIA/GONORRHEA SCREENING 2014 HEPATITIS C SCREENING 11/24/2016 DTAP/TDAP/TD VACCINES (1 - Tdap) 2017 HEPATITIS B VACCINE (1 of 3 - 19+ 3-dose series) 2017 COVID-19 VACCINE (1 - season) 2024 INFLUENZA VACCINE (#1) 2024 4, 02/15/2013, 03/09/2012, Additional history exists DEPRESSION SCREENING 05/05/2024 MEDICARE AWV CALENDAR YEAR 2024 PAP SMEAR 01/31/2026 01/31/2023 ZOSTER VACCINE (1 of 2) 2048 HIB VACCINE Aged Out No longer eligi ble based on patient's age to complete this topic MENINGOCOCCAL (Group B) VACCINE Aged Out No longer eligible based on patient's age to complete this topic MENINGOCOCCAL VACCINE Aged Out No shari franck eligible based on patient's age to complete this topic PNEUMOCOCCAL VACCINE Aged Out No long er eligible based on patient's age to complete this topic Care Teams Daily Release And Dupe Printer Relationship Specialty Start Date End Date Sonia Stallworth, ANIMAL TREATMENT INVESTIGATOR-CUTTER [place] [phone] PCP - General Nurse Practitioner 04/21/24
--- OUTSIDE RECORDS SUMMARY | 2024-06-17 01:26 | XMS_ITS | Encounter Summary ---
Author Organization [facility] Address [address] [place] [address] Phone Care Team Providers Care Home Care Specialist Name Role Phone StallworthSonia STERLING Primary Care Provider [phone] Encounter Details Date Type Department Care Team (Late st Contact Info) Description 06/16/2024 1:30 PM SALES PROJECT ENGINEER Telemedicine [facility] [address] [facility] 6[address] [place] [phone] Richard Mcclendon MD [address] [facility] [address] [place] [address] Intractable migraine with aura without status migrainosus (Primary Dx) Social History Tobacco Use Types Packs/Day Years Used Date Smoking Tobacco: Never Passive Smoke Exposure: Never Smokeless Tobacco: Never Alcohol Use Standard Drinks/Week Comments Not Asked [...] on file Legal Sex Female 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 female seen today for migraine. HPI Patient is a 23 y.o. female with PMH POTS, GERD who presents today for follow up of migraine with aura and PPPD. Last seen 12/2023, with AP to continue Emgality, Ubrelvy 100/compazine, HEP for PPPD. Since that time, she is stable. She has 2 headaches/week, she treats with Ubrelvy which is fairly effective. She has morning headache most days. She does not snore. Sleep is good. Not using compazine. Dizziness is much better, not even having to do HEP anymore. No other major changes in health other than right sided abdominal pain that she is getting evaluated for. No timeline for . Initial HPI (copied and updated as needed): Patient notes that headaches started at age 22. The headaches begin with an aura of: Spots in vision. Pain is located bifrontal and quality described as piercing. At its worst, headaches are severe in intensity and last all day. They occur 6 days per month (with milder headaches 24 days per month).They are associated with photophobia. They are associated with phonophobia. They are associated with nausea and/or vomiting. They are exacerbated with movement. No triggers. Not related to menstrual cycle. She feels lying down helps and standing makes the pain worse. propranolol: somewhat helpful? 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 Meds: Current Outpatient Medications on File Prior to Visit Medication Sig Dispense Refill acetaminophen-codeine (TYLENOL with CODEINE #3) 300-30 mg per tablet Take 1 tablet by mouth every 4(four) hours as needed for pain 30 tablet 0 albuterol HFA (PROVENTIL HFA,VENTOLIN HFA,PROAIR HFA) 90 mcg/actuation inhaler Inhale 2 puffs every6 (six) hours as needed for wheezing 3 each 4 busPIRone (BUSPAR) 10 mg tablet Take 1 tablet (10 mg total) by mouth 2 (two) times a day 180 tablet1 drospirenone-ethinyl estradioL (Marissa, 28,) 3-0.02 mg per tablet Take 1 tablet by mouth daily 28 tablet 12 galcanezumab-gnlm (Emgality Syringe) 120 mg/mL syringe Inject 240 mg under the skin every 30 (thirty) days for 30 days, THEN 120 mg every 30 (thirty) days. HYDROcodone-acetaminophen (NORCO) 5-325 mg per tablet Take 1 tablet by mouth every 6 (six) hours asneeded for pain (Patient not taking: Reported on 04/16/2024) 20 tablet 0 metoprolol XL (TOPROL-XL) 25 mg extended release tablet Take 2 tablets (50 mg total) by mouth daily metoprolol XL (TOPROL-XL) 50 mg extended release tablet Take 1 tablet (50 mg total) by mouth every morning pantoprazole DR (PROTONIX) 40 mg EC tablet TAKE 1 TABLET(40 MG) BY MOUTH DAILY 30 tablet 1 psyllium (METAMUCIL) powder Take 1 packet by mouth 3 (three) times a day 283 g 0 ubrogepant (Ubrelvy) 100 mg tablet Take 1 tablet (100 mg total) by mouth once as needed for migraine May repeat dose once in 2 hours if no relief. Do not exceed 2 doses in 24 hours. valACYclovir (VALTREX) 1 gram tablet 1 tablet (1,000 mg total) No current facility-administered medications on file prior to visit. Physical Exam GEN: appears stated age, sitting up comfortably in chair NEURO: -- COGNITION: language fluent and without errors, memory intact to recent and distant events -- CRANIAL NERVES: EOMI without nystagmus, face activates symmetrically, no dysarthria, hearing intact to conversation -- MOTOR: Moves all extremities well Assessment and Plan This is 23 y.o. female presenting with migraine with aura, vestibular migraine, PPPD. She continues to do much better than previously but still meets criteria for chronic migraine (8 migraines and 30 headache days/month). She is interested in Botox. PPPD is now in remission! -Refer for Botox -Continue Emgality for now; will stop this once Botox kicks in -Continue PRN Ubrelvy 100 Return in about 1 year (around 06/16/2025). This was a telemedicine visit with Phuong Krishnamurthy avinash which took place via Zoom. During the visit, I was located in the office and the patient was located in the [facility]. The patient visit started at 1325 and ended at 1334. My total encounter time on 06/16/2024 was 20 minutes which was spent in the activities documented in the note. This includes time spent prior to the visit and after the visit in direct care of the patient. This time does not include time spent in any separately reportable services. The patient has been informed that the visit may not be secure and acknowledged the information. After being given an opportunity to ask questions about and discuss this type of visit, they verbally consented to proceeding with the telephone/video visit and understand that this service replaces an office visit. S PROJECT ENGINEER documented in this encounter Plan of Treatment Not on file documented as of this encounter Visit Diagnoses Diagnosis Intractable migraine with aura without status migrainosus- Primary documented in this encounter Discontinued Medications Medication Sig Discontinue Reason Start Date End Da te HYDROcodone-acetaminophe n (NORCO) 5-325 mg per tabletIndications:Pain Take 1 tablet by mouth every 6 (six) hours as needed for pain 04/13/2024 06/16/2024 documented as of this encounter Care Teams Home Care Specialist Relationship Specialty Start Date End Date [place] [address] PCP - General Family Medicine 01/02/24 documented as of this encounter
--- NOTE | 2024-06-17 08:43 | WPDANESEPPF ---
Anes - Initial Pre Proc Eval Procedure: Operation Date: 06/17/24 09:30 Proposed Procedures p Colonoscopy - Jaxon Palma MD Date/Time: 06/17/24 08:43 Surgeon: Jaxon Palma MD Pre Op Diagnosis: abd pain, change in bowel habit Patient Data Age: 23 Gender: F Height: 1.6 m Weight: 68.18 kg Allergies Allergy/AdvReac Type Severity Reaction Status Date / Time No Known Allergies Allergy Verified 06/17/24 08:44 Home Medications ?Medication ?Instructions ?Recorded ?Confirmed ?Type buspirone 5 mg tablet 5 mg PO BID 03/10/23 05/31/24 History drospirenone 3 mg-ethinyl 1 tablet PO DAILY 03/10/23 05/31/24 History estradiol 0.02 mg tablet (SANDEEP (28)) propranolol 60 mg capsule,24 60 mg PO DAILY 03/10/23 05/31/24 History hr,extended release ubrogepant 100 mg tablet 100 mg PO ONCE 03/10/23 05/31/24 History metoprolol tartrate 75 mg tablet 75 mg PO DAILY 04/05/24 05/31/24 History Patient hx anesthesia problems: none Family hx anesthesia problems: none Results Review: All pre-operative results and documents have been reviewed as part of the pre-operative evaluation. [facility] Past Medical History Medical History (Updated 06/17/24 @ 08:43 by Jacinto Marrufo MD) Anxiety Right sided abdominal pain Family History Family History Father Hypertension Grandparent Cancer Diabetes mellitus Grandparent Hypertension Social History Social History Smoking status: Never smoker Alcohol intake: current Drinks per week: 3 Substance use: never Substance use type: does not use Lack of Transportation: No Lack of Food: Never True Current Housing: I Have Housing Concerned About Future Housing: No Difficulty Paying Gas/Electric Bills: No Difficulty Paying for Meds: No Currently Unemployed: No Education: Bachelor's Degree Difficulty w/ Childcare or Family Care: No Living arrangements: with family Spiritual care concerns: No Anes - Eval Final PreProcedure Day of Procedure 06/17/24 08:43 Patient weight: overweight Heart: regular rate and rhythm Lungs: clear to auscultation Airway: Mallampati scale class II Neurological: alert and oriented Last oral intake: >/= 8 hours ASA classification: II Emergent: no Anesthetic plan: proceed Anesthesia type and monitoring: general GIVS and standard monitoring Results Review: All pre-operative results and documents have been reviewed as part of the pre-operative evaluation. Informed Consent: The patient's anesthetic plan and its attendant risks and benefits were discussed with the patient/family/POA. Questions were solicited and answers provided to the satisfaction of the patient/family/POA.
[2024-06-17 08:47] VITALS: BP 115/89; PULSE 84; RESP 20; TEMP 37; O2SAT 100
[2024-06-17 08:52] LABS: BEDSIDEPREGUCG Negative (Negative)
[2024-06-17] MEDS: LACTATED RINGERS 1,000 ML 30 ML IV CONT (08:59)
--- NOTE | 2024-06-17 10:03 | PM.IMHP ---
H&P: HPI History of Present Illness Date/Time: 06/17/24 10:03 Chief Complaint: Abdominal pain Narrative: the patient has been evaluated for constant right-sided abdominal pain with some features suggestive of change in bowel habits. She is referred for colonoscopy. Review of Systems Review of Systems: All systems reviewed & are unremarkable except as noted in HPI and below PMFSH Past Medical History Medical History (Updated 06/17/24 @ 08:43 by Jacinto Marrufo MD) Anxiety Right sided abdominal pain Family History Family History Father Hypertension Grandparent Cancer Diabetes mellitus Grandparent Hypertension Social History Social History Smoking status: Never smoker Alcohol intake: current Drinks per week: 3 Substance use: never Substance use type: does not use Lack of Transportation: No Lack of Food: Never True Current Housing: I Have Housing Concerned About Future Housing: No Difficulty Paying Gas/Electric Bills: No Difficulty Paying for Meds: No Currently Unemployed: No Education: Bachelor's Degree Difficulty w/ Childcare or Family Care: No Living arrangements: with family Spiritual care concerns: No Meds Home Medications and Allergies Home Medications ?Medication ?Instructions ?Recorded ?Confirmed ?Type buspirone 5 mg tablet 5 mg PO BID 03/10/23 06/17/24 History drospirenone 3 mg-ethinyl 1 tablet PO DAILY 03/10/23 06/17/24 History estradiol 0.02 mg tablet (SANDEEP (28)) propranolol 60 mg capsule,24 60 mg PO DAILY 03/10/23 06/17/24 History hr,extended release ubrogepant 100 mg tablet 100 mg PO ONCE 03/10/23 05/31/24 History metoprolol tartrate 75 mg tablet 75 mg PO DAILY 04/05/24 06/17/24 History Allergies Allergy/AdvReac Type Severity Reaction Status Date / Time No Known Allergies Allergy Verified 06/17/24 08:44 Vital Signs Vital Signs - 24 hr 06/17/24 08:47 Temperature 98.6 F Pulse Rate 84 Respiratory Rate 20 Blood Pressure 115/89 Pulse Oximetry 100 Oxygen Delivery Room Air Exam Const: General: cooperative and healthy appearing Resp: Effort & Inspection: normal respiratory effort and able to speak in complete sentences Auscultation: clear to auscultation bilaterally Cardio: Rate: regular rate Rhythm: regular rhythm GI: Inspection: normal to inspection GI Palp: No No hepatosplenomegaly present Auscultation: normal bowel sounds Rectal Exam: deferred Skin: General skin exam: normal color Psych: Appearance: grossly normal Mental Status: mental status grossly normal Assessment and Plan Assessment and plan (1) Right sided abdominal pain: Code(s): R10.9 - Unspecified abdominal pain Status: Acute Assessment and Plan: The patient is deemed a good candidate for the procedure. Consent signed. Will proceed.
[2024-06-17 10:43] VITALS: BP 91/56; PULSE 78; RESP 20; O2SAT 100
[2024-06-17 10:53] VITALS: BP 117/73; PULSE 78; RESP 20; O2SAT 100
[2024-06-17 11:03] VITALS: BP 106/72; PULSE 76; RESP 20; O2SAT 100
== END 2024-06-17 11:22 | disposition home or self-care (01) ==
PROVIDERS: Anesthesiology; PCP Nurse Practitioner; Referring Provider Nurse Practitioner Family; Visit Provider Internal Medicine Gastroenterology
PROC: 0DJD8ZZ Inspection of Lower Intestinal Tract, Via Natural or Artificial Opening Endoscopic (ICD-10-PCS; CPT 45378; principal; 2024-06-17 09:30)
DX: R19.4 Change in bowel habit (principal); F41.9 Anxiety disorder, unspecified; Z80.9 Family history of malignant neoplasm, unspecified
CPT/HCPCS: 45378; J2003; J2704; J7120

== ENCOUNTER 2025-04-15 01:00 | Day surgery (SDC) | payer OTHER, SELFPAY ==
--- OUTSIDE RECORDS SUMMARY | 2023-08-28 10:00 | XMS_ITS | Continuity of Care Document ---
Author Organization [facility] [place] Address [address] [facility] [place] [address] Phone Care Team Providers Care Consumer Affairs Specialist Name Role Phone Darline Salinas PT Unavailable Unavailable Procedures Procedure Date Therapeutic Activities Manual Therapy Hot or Cold Pack Therapeutic Activities Therapeutic Exercise Manual Therapy Hot or Cold Pack Therapeutic Activities Neuromuscular Re-Ed Manual Therapy Hot or Cold Pack Progress Note Therapeutic Activities Neuromuscular Re-Ed Hot or Cold Pack Therapeutic Exercise Therapeutic Activities Neuromuscular Re-Ed Therapeutic Exercise Hot or Cold Pack Therapeutic Activities Neuromuscular Re-Ed Therapeutic Exercise Therapeutic Activities Neuromuscular Re-Ed Manual Therapy Therapeutic Activities Neuromuscular Re-Ed Therapeutic Exercise Manual Therapy Therapeutic Activities Neuromuscular Re-Ed Manual Therapy Therapeutic Activities Neuromuscular Re-Ed Manual Therapy Therapeutic Activities Neuromuscular Re-Ed Manual Therapy Hot or Cold Pack Therapeutic Activities Neuromuscular Re-Ed Manual Therapy Hot or Cold Pack Therapeutic Activities Neuromuscular Re-Ed Manual Therapy Hot or Cold Pack Therapeutic Activities Neuromuscular Re-Ed Manual Therapy Hot or Cold Pack Therapeutic Activities Neuromuscular Re-Ed Manual Therapy Hot or Cold Pack Therapeutic Activities Neuromuscular Re-Ed Manual Therapy Hot or Cold Pack Therapeutic Activities Neuromuscular Re-Ed Therapeutic Exercise Manual Therapy Hot or Cold Pack Therapeutic Activities Neuromuscular Re-Ed Manual Therapy Hot or Cold Pack Therapeutic Activities Neuromuscular Re-Ed Manual Therapy Hot or Cold Pack Therapeutic Activities Neuromuscular Re-Ed Manual Therapy Hot or Cold Pack Therapeutic Activities Neuromuscular Re-Ed Manual Therapy Hot or Cold Pack Therapeutic Activities Neuromuscular Re-Ed Therapeutic Exercise Manual Therapy Hot or Cold Pack Therapeutic Activities Neuromuscular Re-Ed Therapeutic Exercise Hot or Cold Pack Therapeutic Activities Neuromuscular Re-Ed Therapeutic Exercise Hot or Cold Pack Manual Therapy Therapeutic Activities Neuromuscular Re-Ed Therapeutic Exercise Manual Therapy Hot or Cold Pack PT Evaluation High Complexity Therapeutic Activities Neuromuscular Re-Ed Manual Therapy Advance Directives Directive Yes / No Effective Date File Name No Information Encounters Encounter Description Practice Location Reason(s) For Visit Diagnoses Date Provider Providers Copied on Encounter [facility] [address], [id number], tel:[phone] [place] No Information Garrels Darline. . Referring Provider: Richard Miller, [address] [place] [address], [address]. tel:[phone] [place] [address], [id number], tel:[phone] [place] No Information Garrels Darline. . Referring Provider: Richard Miller, [address] [place], [address]. tel:[phone] [facility] [address], [id number], tel:[phone] [place] No Information Garrels Darline. . Referring Provider: Richard Miller, [address] [place], [address]. tel:[phone] [facility] [address] [address], [place], [place], [id number], tel:[phone] [place] No Information Garrels Darline. . Referring Provider: Richard Miller, [address] [place] [address], [address]. tel:[phone] [facility], [address], [place], [place], [id number], [place] tel:[phone] [place] No Information Garrels Darline. . Referring Provider: Richard Miller, [address] [place] [address], [address]. tel:[phone] [facility], [address], [place], [place], [id number], [place] tel:[phone] [place] No Information Garrels Darline. . Referring Provider: Richard Miller, [address] [place] [address], [address]. tel:[phone] [facility], [address] [place], [place] [address], [place], [place], [id number], [place] tel:[phone] [place] No Information Garrels Darline. . Referring Provider: Richard Miller, [address] [place] [address], [address]. tel:[phone] [facility], [address] [facility], [place], [place], [id number], [place] tel:[phone] [place] No Information Garrels Darline. . Referring Provider: Richard Miller, [address] [place] [address], [address]. tel:[phone] [facility], [address], [place], [place], [id number], [place] tel:[phone] [place] No Information Garrels Darline. . Referring Provider: Richard Miller, [address] [place] [address], [address]. tel:[phone] [facility], [address], [place], [place], [id number], [place] tel:[phone] [place] No Information Garrels Darline. . Referring Provider: Richard Miller, [facility] [place], [address]. tel:[phone] [facility], [address] [place] [address] [address], [place], [place], [id number], tel:[phone] [place] No Information Garrels Darline. . Referring Provider: Richard Miller, [facility] [place], [address]. tel:[phone] [facility], [address], [place], [place], [id number], [place] tel:[phone] [place] No Information Garrels Darline. . Referring Provider: Richard Miller, [address] [place] [address], [address]. tel:[phone] [facility] [address], [place], [place], [id number], [place] tel:[phone] [place] No Information Garrels Darline. . Referring Provider: Richard Miller, [address] [place] [address], [address]. tel:[phone] [facility], [address], [place], [place], [id number], [place] tel:[phone] [place] No Information Garrels Darline. . Referring Provider: Richard Miller, [facility] [place], [address]. tel:[phone] [facility], [address], [place], [place], [id number], [place] tel:[phone] [place] No Information Garrels Darline. . Referring Provider: Richard Miller, [facility] [place], [address]. tel:[phone] [facility], [address], [place], [place], [id number], tel:[phone] [place] No Information Garrels Darline. . Referring Provider: Richard Miller, [address] [place] [address], [address]. tel:[phone] [facility], [address] [place], [place] [address], [place], [place], [id number], tel:[phone] [place] No Information Garrels Darline. . Referring Provider: Richard Miller, [address] [place] [address], [address]. tel:[phone] [address] [facility], [place], [place], [id number], tel:[phone] [place] No Information Garrels Darline. . Referring Provider: Richard Miller, [address] [place] [address], [address]. tel:[phone] [facility] [address] [place], [place] [address] [facility], [place], [place], [id number], [place] tel:[phone] [place] No Information Garrels Darline. . Referring Provider: Richard Miller, [address] [place] [address], [address]. tel:[phone] [facility] [address] [place], [place] [address] [facility], [place], [place], [id number], tel:[phone] [place] No Information Garrels Darline. . Referring Provider: Richard Miller, [facility] [place], [address]. tel:[phone] [address], [place], [place], [id number], tel:[phone] [place] No Information Garrels Darline. . Referring Provider: Richard Miller, [address] [place] [address], [address]. tel:[phone] [facility] [address] [place] [address], [id number], tel:[phone] [place] No Information Garrels Darline. . Referring Provider: Richard Miller, [address] [place] [address], [address]. tel:[phone], [id number], tel:[phone] [place] No Information Garrels Darline. . Referring Provider: Richard Miller, [address] [place] [address], [address]. tel:[phone], [id number], tel:[phone] [place] No Information [place]. . Referring Provider: iRchard Miller, [facility] [place], [address]. tel:[phone], [id number], tel:[phone] [place] No Information Garrels Darline. . Referring Provider: Richard Miller, [facility] [place], [address]. tel:[phone], [id number], tel:[phone] [place] No Information Garrels Darline. . Referring Provider: Richard Miller, [facility] [place], [address]. tel:[phone] Family History Family Member Type Diagnosis Age At Onset No Information Payers Payer name Insurance type Covered green party ID Saritaa capricetania(s) [facility] [id number] Social History Type Description Quantity Date Captured Comments Sex Female Smoking Status No Information Chief Complaint And Reason For Visit No Information Reason For Referral Reason For Referral No Information History Of Present Illness Encounter Date Complaint History Of Prese nt Illness No Information Functional Status Date Functional Assessmen t No Information Instructions Date Instruction Additional Infor mation No Information Assessments Type Assessment Date No Information Patient Care Teams Name Effective Dates (start - stop) Status Members No Information
[2025-03-22 14:15] VITALS: BMI 24.2
--- OUTSIDE RECORDS SUMMARY | 2025-04-15 01:08 | XMS_ITS | Clinical Summary ---
Author Organization [facility] [address] Address [address] [place] [address] Phone Care Team Providers Care Gi Technician Name Role Phone Sonia Stallworth RETAIL BEAUTY SPECIALIST Primary Care Provider [phone] Allergies Active Allergy Reactions Criticality Noted Date Comments Rimegepant Other (See comments) Low 01/02/2024 Hair loss Medications ubrogepant (Ubrelvy) 100 mg tabletIndication s:Intractable migraine with aura without status migrainosus TAKE 1 TABLET(100 MG) BY MOUTH 1 TIME NEEDED FOR MIGRAINE. MAY REPEAT DOSE 1 TIME IN 2 HOURS IF NO RELIEF. DO NOT EXCEED 2 DOSES IN 24 HOURS 10 tablet 2 10/12/19 25 Active drospirenone-eth inyl estradioL (Marissa, 28,) 3-0.02 mg per tabletIndication s:Oral contraceptive pill surveillance Take 1 tablet by mouth daily 28 tablet 12 02/08/20 25 Active valACYclovir (VALTREX) 1 gram tablet Take 1 tablet (1,000 mg total) by mouth daily 30 tablet 11 02/08/20 25 Active busPIRone (BUSPAR) 10 mg tabletIndication s:Anxiety Take 1 tablet (10 mg total) by mouth 2 (two) times a day 180 tablet 1 03/02/[address] (PROTONIX) 40 mg EC tabletIndication s:Gastroesophage al reflux disease without esophagitis Take 1 tablet (40 mg total) by mouth daily 90 tablet 1 03/03/20 25 Active amitriptyline (ELAVIL) 25 mg tabletIndication s:Intractable migraine with aura without status migrainosus Take 1 tablet (25 mg total) by mouth nightly at bedtime 02/21/20 25 Active metoprolol XL (TOPROL-XL) 50 mg extended release tabletIndication s:POTS (postural orthostatic tachycardia syndrome) Take 1 tablet (50 mg total) by mouth every morning 03/25/20 25 Active albuterol HFA (PROVENTIL HFA,VENTOLIN HFA,PROAIR HFA) 90 mcg/actuation inhaler Inhale 2 puffs every 6 (six) hours as needed for wheezing 3 each 4 10/06/19 24 025 Discontinued acetaminophen-co deine (TYLENOL with CODEINE #3) 300-30 mg per tablet Take 1 tablet by mouth every 4 (four) hours as needed for pain 30 tablet 02/23/20 24 025 Discontinued psyllium (METAMUCIL) powder Take 1 packet by mouth 3 (three) times a day 283 g 04/13/20 24 025 metoprolol XL (TOPROL-XL) 50 mg extended release tablet Take 1 tablet (50 mg total) by mouth every morning 03/23/20 24 025 Discontinued(Re order) hyoscyamine ER (LEVBID) 0.375 mg 12 hr tabletIndication s:diarrhea Take 1 tablet (0.375 mg total) by mouth every 12 (twelve) hours as needed for cramping 025 Discontinued Hospital, Clinic, or Other Facility Administered Medication Ordered Dose Route Frequency Start Date End Date Status onabotulinumtoxin A (BOTOX) 200 unit injection 200 UnitsIndications:Int ractable chronic migraine without aura and without status migrainosus 200 Units OTHER Once for Clinic-Administer ed Medication 04/07/2025 04/07/2025 Ended Active Problems Problem Noted Date Diagnosed Date Liver lesion 02/19/2024 Assessment & Plan (02/19/2024 [...] without esophagi tis 10/23/2023 Assessment & Plan (03/25/2025 8:18 AM PUMP OPERATOR): Chronic, stable Continue Pantoprazole 40 mg daily Assessment & Plan (10/23/2023 3:38 PM CDT): [...] eating more frequent, smaller meals is preferred. Anxiety 02/19/2023 Assessment & Plan (03/25/2025 8:18 AM PUMP OPERATOR): Chronic, stable Continue Buspar 10 mg BID Assessment & Plan (03/19/2023 5:19 PM PUMP OPERATOR): Chronic. SAIGE 7 score 9. Mild anxiety. PHQ 2 score 0 Increase Buspar 10mg BID. Risks/benefits and alternatives discussed Consider counseling. Can try [employer] or contact insurance for a list of providers Monitor symptoms. In clinic follow-up 6 weeks Assessment & Plan (02/19/2023 1:27 PM CDT): Chronic. SAIGE 7 score 15. Moderate anxiety. PHQ 2 score 0 Start Buspar 5mg BID. Risks/benefits and alternatives discussed Consider counseling. Can try [employer] or contact insurance for a list of providers Monitor symptoms. Telehealth follow-up 4 weeks Annual physical exam 01/21/2023 Assessment & Plan (03/25/2025 8:18 AM PUMP OPERATOR): Orders: CBC with auto differential; Future Comprehensive metabolic panel; Future Assessment & Plan (01/21/2023 12:24 PM CDT): Doing well. BMI: 21.8 (Normal) Routine labs ordered - Recent labs reviewed Preventative Screening Due: Pap due, referred to Director Business Travel Dietary and exercise recommendations given today. Recommend exercise at least 30 minutes moderate to vigorous exercise and some strength training most days of the week. (minimum 150 minutes weekly) Discussed MyPlate recommendations and increasing fruits and vegetables Vaccines due - TDAP, Flu RTC annually for f/u Intractable migraine with aura without status mi grainosus 12/10/2022 Assessment & Plan (03/25/2025 8:18 AM PUMP OPERATOR): Chronic, stable Follows with neurology Continue Botox injections (getting good relief), Ubrelvy as needed and Amitriptyline 25 mg nightly Assessment & Plan (10/23/2023 3:34 PM CDT): [...] orthostatic tachycardia syndrome) 11/19/2022 Assessment & Plan (03/25/2025 8:18 AM PUMP OPERATOR): Chronic, stable Follows with cardiology Continue Metoprolol 25 mg daily Orders: metoprolol XL (TOPROL-XL) 50 mg extended release tablet; Take 1 tablet (50 mg total) by mouth every morning Assessment & Plan (01/02/2024 12:42 PM CDT): [...] pain. Follow-up if symptoms are not resolving Sinus bradycardia by electrocardiogram 10/13/2023 03/25/2025 Acute chest pain 10/13/2023 01/02/2024 Assessment & Plan (10/23/2023 3:38 PM CDT): Anterior chest pain could be related to GERD. Not related to cardiac per ER evaluation on 10/13/2023. If symptoms are not resolving, she needs to follow up. Anterior pleuritic pain 10/13/202303/06 Weakness of both arms 12/25/20222023 Assessment & [...] Encounters Date Type Department Care Team Description 04/07/2025 4:20 PM PUMP OPERATOR Procedure visit [facility] [address] [facility] 6th [address] [place] [phone] Richard Mcclendon MD Intractable migraine with aura without status migrainosus (Primary Dx) 04/06/2025 Results Follow-Up [facility] [address] [place] [address] [place] [address] Brooklyn Escobar MD RUQ Ultrasound 04/05/2025 8:28 AM PUMP OPERATOR - 04/05/2025 11:59 PM PUMP OPERATOR Hospital Encounter [facility] [address] [place] [address] Liver lesion Discharge Disposition: Discharge to home or self care 03/25/2025 7:30 AM PUMP OPERATOR [facility] [address] [address] Sonia Stallworth NP Annual physical exam (Primary Dx); Encounter for screening for lipid disorder; Intractable migraine with aura without status migrainosus; Anxiety; POTS (postural orthostatic tachycardia syndrome); Gastroesophageal reflux disease without esophagitis 03/21/2025 Telephone [facility] [address] [place] [address] [place] [address] Darcy Mcpherson CNA schedule RUQ US 03/09/2025 Orders Only [facility] [address] [facility] 6th [address] [place] [phone] Charlene Brewer Intractable chronic migraine without aura and without status migrainosus (Primary Dx) 03/02/2025 Telephone [facility] [address] [place] [address] Sonia Stallworth NP Medical Question/Miscellaneo us 02/07/2025 3:30 PM CDT Office Visit [facility] [address] [facility] [address] [place] [phone] Danae Graham, Encounter for annual routine gynecological examination (Primary Dx); Encounter for surveillance of contraceptive pills; Oral contraceptive pill surveillance from Last 3 Months Immunizations Immunization Administration Dates Next Due DTaP 12/02/2003, 0,06/14/1999,04/19,01/30/1999 [...] points, staff should administer the PHQ-9) 0 03/25/2025 Personal Safety Answer Date Recorded Have you ever been in or are you currently in a harmful physical or emotional relationship or is someone making you feel afraid or unsafe? Denies 04/13/2024 Comments No Sex and Gender Information Value Date Recorded Sex Assigned at Not on file Legal Sex Female 12:46 PM PUMP OPERATOR Gender Identity Not on file Sexual Orientation Not on file Occupation Industry Job Start Date Job End Date Not on file Not on file Not on file Not on file Obstetrics History Para Term AB IAB SAB Ectopic Multiple Livin g Live Births 0 0 0 0 0 0 0 0 0 0 0 Last Filed Vital Signs Vital Sign Reading Time Taken Comments Blood Pressure 116/82 04/07/2025 4:14 PM PUMP OPERATOR Pulse 74 04/07/2025 4:14 PM PUMP OPERATOR Temperature 36.7 C (98.1 F) 04/07/2025 4:14 PM PUMP OPERATOR Respiratory Rate 16 03/25/2025 7:23 AM PUMP OPERATOR Oxygen Saturation 97% 04/07/2025 4:14 PM PUMP OPERATOR Inhaled Oxygen Concentration - - Weight 76.2 kg (168 lb) 04/07/2025 4:14 PM PUMP OPERATOR Height 162.6 cm (5' 4) 04/07/2025 4:14 PM PUMP OPERATOR Body Mass Index 28.84 04/07/2025 4:14 PM PUMP OPERATOR Plan of Treatment Health Maintenance Due Date Last Done Comments Influenza Vaccine (#1) 2025 4, 02/15/2013, 03/09/2012, Additional history exists Postponed from 01/03/2025 (Patient declined, but will receive in the future) Cervical Cancer Screening 02/09/2026 01/31/2023 Po stponed from 02/01/2024 (Provider's clinical decision) Pneumococcal vaccine <65 (1 of 2 - PCV) 03/10/2026 Postponed from 2017 (Patient declined, but will receive in the future) Depression Screening 03/25/2026 03/25/2025, 01/02/2024, 01/21/2023, Additional history exists Regular Well Visit/Exam 18-64 03/25/2026 03/25/2025, 02/07/2025, 02/02/2024, Additional history exists DTaP/Tdap/Td Vaccine (7 - Td or Tdap) 03/27/2026 11/17/2010, 12/02/2003, 03/03/2000, Additional history exists Postponed from 11/17/2020 (Patient declined, but will receive in the future) Varicella Vaccines Completed 12/13/2015, 0 11/17/2010, 12/05/1999 HPV Vaccines Completed 06/25/2016, 02/02, 12/13/2015 Hepatitis C Screening Completed 02/26/2024 Procedures Procedure Name Priority Date/Time Associated Diagnosis Comments US RUQ Schedule Routine, Read Routine (OP Routine) 04/05/2025 9:41 AM PUMP OPERATOR Liver lesion HEPATITIS C ANTIBODY Routine 02/26/2024 2:19 PM CDT Encounter for hepatitis C screening test for low risk patient PAP WITH REFLEX TO HIGH RISK HPV Routine 01/31/2023 10:14 AM CDT Screening for malignant neoplasm of cervix from Last 3 Months or Most Recently Relevant to Health Maintenance Results * RUQ Ultrasound (04/05/2025 9:41 AM PUMP OPERATOR) Anatomical Region Laterality Modality Abdomen N/A Ultrasound 04/05/2025 4:10 PM PUMP OPERATOR Impressions 04/05/2025 4:10 PM PUMP OPERATOR There are two hyperechoic lesions in the liver which are grossly unchanged in size when compared to the reference ultrasound. A third larger lesion that was seen on the comparison ultrasound is not seen on today's exam. These lesions remain indeterminate. Electronically signed by: Dimitri Bartlett MD Narrative 04/05/2025 4:10 PM PUMP OPERATOR EXAMINATION: US RUQ HISTORY: Hepatocellular carcinoma screening known liver lesion ATTN LIVER. COMPARISON: MR abdomen 09/06/2024; abdominal ultrasound 08/19/2024 TECHNIQUE: Grayscale, color Doppler and spectral Doppler sonographic images of the right upper quadrant abdominal contents were reviewed. FINDINGS: LIVER: Liver measures 17.3 cm in length. Normal hepatic echogenicity. The right liver there is a 1.3 x 0.7 x 1.4 cm hyperechoic lesion which previously measured about 1.2 x 0.8 x 1.3 cm. There is an additional unchanged hyperechoic lesion in the liver measuring 9 x 6 x 7 mm. A previously measured larger lesion in the hepatic dome is not definitively seen on today's exam. The main portal vein is patent with hepatopedal flow. GALLBLADDER: The gallbladder is normally distended without gallstones or pericholecystic fluid. There is no gallbladder wall thickening. No sonographic Granados sign reported. BILE DUCTS: There is no intrahepatic or extrahepatic biliary ductal dilatation. The common bile duct measures 3 mm in diameter. PANCREAS: The visualized portion of the pancreatic head and body appear normal. The pancreatic tail is obscured. RIGHT KIDNEY: Measures 9.9 cm in length. There is normal echogenicity without hydronephrosis or mass. OTHER: No other acute findings. Procedure Note Dimitri Bartlett MD - 04/05/2025 EXAMINATION: US RUQ HISTORY: Hepatocellular carcinoma screening known liver lesion ATTN LIVER. COMPARISON: MR abdomen 09/06/2024; abdominal ultrasound 08/19/2024 TECHNIQUE: Grayscale, color Doppler and spectral Doppler sonographic images of the right upper quadrant abdominal contents were reviewed. FINDINGS: LIVER: Liver measures 17.3 cm in length. Normal hepatic echogenicity. The right liver there is a 1.3 x 0.7 x 1.4 cm hyperechoic lesion which previously measured about 1.2 x 0.8 x 1.3 cm. There is an additional unchanged hyperechoic lesion in the liver measuring 9 x 6 x 7 mm. A previously measured larger lesion in the hepatic dome is not definitively seen on today's exam. The main portal vein is patent with hepatopedal flow. GALLBLADDER: The gallbladder is normally distended without gallstones or pericholecystic fluid. There is no gallbladder wall thickening. No sonographic Granados sign reported. BILE DUCTS: There is no intrahepatic or extrahepatic biliary ductal dilatation. The common bile duct measures 3 mm in diameter. PANCREAS: The visualized portion of the pancreatic head and body appear normal. The pancreatic tail is obscured. RIGHT KIDNEY: Measures 9.9 cm in length. There is normal echogenicity without hydronephrosis or mass. OTHER: No other acute findings. IMPRESSION: There are two hyperechoic lesions in the liver which are grossly unchanged in size when compared to the reference ultrasound. A third larger lesion that was seen on the comparison ultrasound is not seen on today's exam. These lesions remain indeterminate. Electronically signed by: Dimitri Bartlett MD us Radha Murry NP IMG US PROCEDURES Final Result * Hepatitis C antibody Blood (02/26/2024 2:19 [...] last revised on 2019. Testing performed by: [facility], [address] [place] [address]., [id number] Blood 02/26/2024 2:19 PM CDT 02/26/2024 7:56 PM CDT us Sonia Stallworth NP LAB MICROBIOLOGY - GENERAL ORDER PENNY Final Result [facility] ([place]) [facility] [place] [address] * Pap with reflex to High Risk HPV and Genotyping (Cytology Component) (01/31/2023 10:14 AM CDT) Thin prep (Pap test) 01/31/2023 10:14 AM CDT 01/31/2023 10:14 AM CDT Narrative PATHOLOGY CH - 02/05/2023 2:21 PM CDT [facility] Department of Pathology [address] [place], [place] [id number] Final Report Note to Patients: This report [...] the details. Patient Name: TRELL KRISHNAMURTHY Address: [address] [place] [address] Gender: F : 2000 (Age: 22) Service: Location: Hospital #: [id number] Patient Type: SPECIMEN Taken: 01/31/2023 Received: 01/31/2023 Accessioned:: 02/03/2023 Reported: 02/05/2023 Physician(s): Dorene Swanson D.O. Diagnosis: SOURCE OF SPECIMEN Imaged Thinprep Pap Test w/ Reflex HPV - Director Business Travel Cytologic Material: STATEMENT OF ADEQUACY - Specimen satisfactory for interpretation; endocervical/transformation zone component absent or insufficient GENERAL CATEGORIZATION: - Negative for intraepithelial lesion or malignancy INTERPRETATION: - Predominance of coccobacilli consistent with shift in vaginal medina. Possible bacterial vaginosis HOLLY Hutton(ASCP) Report Electronically Reviewed and Signed Out By HOLLY Hutton(ASCP) 02/05/2023 14:21:14Specimen(s) Received: A: Imaged Thinprep Pap Test w/ Reflex HPV - Director Business Travel Cytologic Material Clinical History: Last Menstrual Period: [...] determined by the Surgical Pathology Department at [facility] as part of an ongoing director of quality control program and in compliance with federally mandated [...] characteristics determined by the Surgical Pathology Department [facility]. It has not been cleared or approved by the U. S. Food and Drug Administration. Danae Graham DO LAB CYTOLOGY ORDERABLES Final Result PATHOLOGY [address] [place] [address] from Last 3 Months or Most Recently Relevant to Health Maintenance Insurance [employer] Care Teams Gi Technician Relationship Specialty Start Date End Date [place] [address] PCP - General Family Medicine 01/02/24
--- OUTSIDE RECORDS SUMMARY | 2025-04-15 01:08 | XMS_ITS | Clinical Summary ---
Author Organization [facility] [employer] Address [address] [place] [address] Care Team Providers Care Traffic Control Flagger Name Role Phone Sonia Stallworth ZAKIYA-ART DEALER Primary Care Provider [phone] Source Comments [facility] [employer],non-owned Affiliates and Associated Physician Practices is amultiple site organization consisting of ambulatory clinics and hospital sitesin [place], [place], [place] and [place]. This disclosure is being madepursuant to the Care Everywhere program and may not contain all information available regarding this patient. Last updated 18.[facility] [employer] Allergies No known active allergies Medications * Be aware that medications may not be up to date on this document. Alwaysverify current medications with the patient. busPIRone (Buspar) 10 MG tablet 4 Active drospirenone-et hinyl estradiol (Marissa) 3-0.02 MG tablet Take 1 (one) tablet by mouth once daily 4 Active meclizine (Antivert) 25 MG tablet 3 Active ondansetron, disintegrating, (Zofran ODT) 4 MG tablet 4 Active prochlorperazin e (Compazine) 5 MG tablet 4 Active Ubrelvy 100 MG tablet 4 Active venlafaxine XR 24hr (Effexor XR) 75 MG capsule 37.5 mg Decreasing to 37.5 as pt is coming off of medication. 4 Active Emgality 120 MG/ML SOSY 4 Active albuterol HFA (Proventil; Ventolin; Proair) 108 (90 Base) MCG/ACT inhaler Inhale 2 (two) puffs by mouth every 6 hours as needed for Wheezing Active benzonatate (Tessalon) 200 MG capsule 4 Active famotidine (Pepcid) 20 MG tablet TAKE 1 TABLET BY MOUTH TWICE DAILY DIRECTED TO HELP ALLEVIATE HEARTBURN PAIN 4 Active pantoprazole EC (Protonix) 40 MG tablet Take 1 (one) tablet by mouth once daily 4 Active valACYclovir (Valtrex) 1 GM tablet 1 (one) tablet 4 Active metoprolol succinate XL 24hr (Toprol XL) 50 MG tablet Take 1 (one) tablet by mouth 2 times daily 180 tablet 3 5 Active Active Problems No known active problems Social History Tobacco Use Types Packs/Day Years Used Date Smoking Tobacco: Never Smokeless Tobacco: Never Tobacco Cessation:Counseling Given: Not Answered Comments Unknown Sex and Gender Information Value Date Recorded Sex Assigned at Not on file Legal Sex Female 3:29 PM CDT Gender Identity Not on file Sexual Orientation Not on file Last Filed Vital Signs Vital Sign Reading Time Taken Comments Blood Pressure 109/69 10/13/2024 3:05 PM CDT Pulse 82 10/13/2024 3:05 PM CDT Temperature - - Respiratory Rate - - Oxygen Saturation 97% 10/28/2023 9:44 AM CDT Inhaled Oxygen Concentration - - Weight 71.3 kg (157 lb 3.2 oz) 10/13/2024 3:05 PM CDT Height 160 cm (5' 2.99) 10/13/2024 3:05 PM CDT Body Mass Index 27.85 10/13/2024 3:05 PM CDT Plan of Treatment Upcoming Encounters Date Type Department Care Team (Late st Contact Info) Description 05/23/2025 2:55 PM LENS ASSORTER Office Visit [facility] [address] [address] [place] [address] [address] Health Maintenance Due Date Last Done Comments HIV SCREENING 2013 HPV VACCINE (1 - 3-dose series) 2013 HEPATITIS C SCREENING 11/24/2016 DTAP/TDAP/TD VACCINES (1 - Tdap) 2017 HEPATITIS B VACCINE (1 of 3 - 19+ 3-dose series) 2017 DEPRESSION SCREENING 05/05/2024 MEDICARE AWV CALENDAR YEAR 2024 COVID-19 VACCINE (1 - season) 2025 INFLUENZA VACCINE (#1) 2025 4, 02/15/2013, 03/09/2012, Additional history exists PAP SMEAR 01/31/2026 01/31/2023 ZOSTER VACCINE (1 of 2) 2048 HIB VACCINE Aged Out No longer eligi ble based on patient's age to complete this topic MENINGOCOCCAL (Group B) VACCINE SHARED DECISION-MAKING Aged Out No longer eligible based on patient's age to complete this topic MENINGOCOCCAL GROUPS A/C/Y/W VACCINE Aged Out No longer eligible based on patient's age to complete this topic PNEUMOCOCCAL VACCINE Aged Out No long er eligible based on patient's age to complete this topic Insurance [facility] MEDIC[facility] ADV Care Teams Traffic Control Flagger Relationship Specialty Start Date End Date Sonia Stallworth, HOME HEALTH CARE RESPIRATORY THERAPIST[place] [address] PCP - General Nurse Practitioner 04/21/24
--- OUTSIDE RECORDS SUMMARY | 2025-04-15 01:08 | XMS_ITS | Clinical Summary ---
Author Organization [facility] Address [address] [place] [address] Phone Care Team Providers Care Spanish Literature Professor Name Role Phone Stephany Farrell MD Primary Care Provider Allergies No known active allergies Medications Lka-Et-Umtkecfn a 0.18/0.215/0.25 MG-25 MCG Tablet 09/11/2022 Active [...] Comments Hepatitis C Virus (HCV) Screening 2000 Influenza Immunization (#1) 01/03/202502/03, 02/15/2013, 03/09/2012, Additional history exists SARS-COV-2 Immunization (2023- season) 2025 Respiratory Syncytial Virus (RSV) Immunization (Adult) (1 [...] to complete this topic Insurance Care Teams Spanish Literature Professor Relationship Specialty Start Date End Date Stephany Farrell MD PCP - General Family Medicine 11/12/22
[2025-04-15 08:16] VITALS: BP 106/70; PULSE 81; RESP 16; TEMP 36.2; O2SAT 100
[2025-04-15] MEDS: LACTATED RINGERS 1,000 ML 150 ML IV CONT (08:28)
[2025-04-15] MEDS: SIMETHICONE ORAL SUSPENSION 20 MG/0.3 ML 30 ML BOTTLE 1.8 ML PO (08:29)
--- NOTE | 2025-04-15 08:48 | P.PNAN_ITS ---
Anes - Initial Pre Proc Eval Procedure: Operation Date: 04/15/25 09:30 Proposed Procedures p Esophagogastroduodenoscopy EGD - Jaxon Palma MD Date/Time: 04/15/25 08:48 Surgeon: Jaxon Palma MD Pre Op Diagnosis: Right upper quadrant pain Patient Data Age: 24 Gender: F Height: 1.6 m Weight: 76.9 kg Last Vital Signs Temp 36.2 C L 04/15/25 08:16 Pulse 81 04/15/25 08:16 Resp 16 04/15/25 08:16 BP 106/70 04/15/25 08:16 Pulse Ox 100 04/15/25 08:16 O2 Del Method Room Air 04/15/25 08:16 Allergies Allergy/AdvReac Type Severity Reaction Status Date / Time No Known Allergies Allergy Verified 04/15/25 08:15 Home Medications ?Medication ?Instructions ?Recorded ?Confirmed ?Type buspirone 5 mg tablet 10 mg PO BID 03/10/23 History drospirenone 3 mg-ethinyl 1 tablet PO DAILY 03/10/23 1 06/16/24 History estradiol 0.02 mg tablet (SANDEEP (28)) propranolol 60 mg capsule,24 40 mg PO DAILY 03/10/23 1 06/16/24 History hr,extended release ubrogepant 100 mg tablet 100 mg PO ONCE PRN migraines 03/10/23 03/22/25 History metoprolol succinate 50 mg 50 mg PO DAILY 03/22/2504/28 History tablet,extended release 24 hr onabotulinumtoxinA (cosmetic) 50 2.5 unit IM ONCE 03/0503/22/25 History unit intramuscular solution (Botox Cosmetic) amitriptyline 25 mg tablet 25 mg PO QHS 1 month #30 ta bs 04/05/25 04/15/25 Rx Patient hx anesthesia problems: none Family hx anesthesia problems: none Results Review: All pre-operative results and documents have been reviewed as part of the pre- operative evaluation. [facility] Past Medical History Medical History RUQ pain POTS (postural orthostatic tachycardia syndrome) Liver lesion IBS (irritable bowel syndrome) Anxiety Right sided abdominal pain Family History Family History Father Hypertension Grandparent Cancer Diabetes mellitus Grandparent Hypertension Social History Social History Smoking status: Never smoker Alcohol intake: current Drinks per week: 3 Alcohol use details: socially Substance use: never Substance use type: does not use Lack of Transportation: No Lack of Food: Never True Current Housing: I Have Housing Concerned About Future Housing: No Difficulty Paying Gas/Electric Bills: No Difficulty Paying for Meds: No Currently Unemployed: No Education: Bachelor's Degree Difficulty w/ Childcare or Family Care: No Living arrangements: with family Spiritual care concerns: No Anes - Eval Final PreProcedure Day of Procedure 04/15/25 08:48 Patient weight: obese Heart: regular rate and rhythm Lungs: clear to auscultation Airway: Mallampati scale class II Neurological: alert and oriented Last oral intake: >/= 8 hours ASA classification: III Emergent: no Anesthetic plan: proceed Anesthesia type and monitoring: general GIVS and standard monitoring Results Review: All pre-operative results and documents have been reviewed as part of the pre- operative evaluation. Informed Consent: The patient's anesthetic plan and its attendant risks and benefits were discussed with the patient/family/POA. Questions were solicited and answers provided to the satisfaction of the patient/family/POA.
--- NOTE | 2025-04-15 09:04 | PM.IMHP2 ---
H&P: HPI History of Present Illness Date/Time: 04/15/25 09:04 Chief Complaint: Abdominal pain Narrative: Patient is referred for EGD for the vest occasion of intermittent, nonspecific right upper quadrant pain, occurring mainly postprandially. Review of Systems Review of Systems: All systems reviewed & are unremarkable except as noted in HPI and below PMFSH Past Medical History Medical History RUQ pain POTS (postural orthostatic tachycardia syndrome) Liver lesion IBS (irritable bowel syndrome) Anxiety Right sided abdominal pain Family History Family History Father Hypertension Grandparent Cancer Diabetes mellitus Grandparent Hypertension Social History Social History Smoking status: Never smoker Alcohol intake: current Drinks per week: 3 Alcohol use details: socially Substance use: never Substance use type: does not use Lack of Transportation: No Lack of Food: Never True Current Housing: I Have Housing Concerned About Future Housing: No Difficulty Paying Gas/Electric Bills: No Difficulty Paying for Meds: No Currently Unemployed: No Education: Bachelor's Degree Difficulty w/ Childcare or Family Care: No Living arrangements: with family Spiritual care concerns: No Meds Home Medications and Allergies Home Medications ?Medication ?Instructions ?Recorded ?Confirmed ?Type buspirone 5 mg tablet 10 mg PO BID 03/10/23 04/15/25 History drospirenone 3 mg-ethinyl 1 tablet PO DAILY 03/10/23 04/15/25 History estradiol 0.02 mg tablet (SANDEEP (28)) propranolol 60 mg capsule,24 40 mg PO DAILY 03/10/23 04/15/25 History hr,extended release ubrogepant 100 mg tablet 100 mg PO ONCE PRN migraines 03/10/23 03/22/25 History metoprolol succinate 50 mg 50 mg PO DAILY 03/22/25 04/15/25 History tablet,extended release 24 hr onabotulinumtoxinA (cosmetic) 50 2.5 unit IM ONCE 03/22/25 03/22/25 History unit intramuscular solution (Botox Cosmetic) amitriptyline 25 mg tablet 25 mg PO QHS 1 month #30 tabs 04/05/25 04/15/25 Rx Allergies Allergy/AdvReac Type Severity Reaction Status Date / Time No Known Allergies Allergy Verified 04/15/25 08:15 Vital Signs Vital Signs - 24 hr 04/15/25 08:16 Temperature 97.2 F L Pulse Rate 81 Respiratory Rate 16 Blood Pressure 106/70 Pulse Oximetry 100 Oxygen Delivery Room Air Exam Const: General: cooperative and healthy appearing Resp: Effort & Inspection: normal respiratory effort and able to speak in complete sentences Auscultation: clear to auscultation bilaterally Cardio: Rate: regular rate Rhythm: regular rhythm GI: Inspection: normal to inspection GI Palp: No No hepatosplenomegaly present Auscultation: normal bowel sounds Rectal Exam: deferred Skin: General skin exam: normal color Psych: Appearance: grossly normal Mental Status: mental status grossly normal Assessment and Plan Assessment and plan (1) Epigastric pain: Code(s): R10.13 - Epigastric pain Status: Acute Assessment and Plan: The patient is deemed a good candidate for the procedure. Consent signed. Will proceed. Prior Studies I have reviewed the following patient records and this information was taken into consideration when formulating the assessment and plan.: previous labs, previous ER visits, previous hospitalizations and previous clinic visits
--- NOTE | 2025-04-15 09:18 | S_PTH ---
PATIENT: Phuong Krishnamurthy LOC: [facility]#:[id number] AGE/SX: 24/F ROOM: RE04/15/[address]: Jaxon Palma MD : 2000 BED: DIS: 04/15/2025 SPEC #: [id number] RECD: 04/15/25 11:43 STATUS: EJ REQ #: [id number] MELISSA: 04/15/25 09:[address]: Jaxon Palma DEPT: [facility] Surgical RECD BY: Barbara Riojas ENTERED: 04/15/25 11:44 SP TYPE: Surgical OTHR DR: Sonia Stallworth Tissues: A - Gastric Biopsy B - Gastric Biopsy Procedures: Hematoxylin and Eosin Stain Gross and Microscopic Level 4
[2025-04-15 09:26] VITALS: BP 87/41; PULSE 85; RESP 27; O2SAT 100
[2025-04-15 09:36] VITALS: BP 97/64; PULSE 84; RESP 20; O2SAT 100
[2025-04-15 09:44] VITALS: BP 96/61; PULSE 79; RESP 24; O2SAT 100
== END 2025-04-15 09:48 | disposition home or self-care (01) ==
PROVIDERS: PCP Nurse Practitioner; Referring Provider Nurse Practitioner Family; Visit Provider Internal Medicine Gastroenterology
PROC: 0DJ08ZZ Inspection of Upper Intestinal Tract, Via Natural or Artificial Opening Endoscopic (ICD-10-PCS; CPT 43239; principal; 2025-04-15 09:30)
DX: K29.70 Gastritis, unspecified, without bleeding (principal); E66.9 Obesity, unspecified; Z68.30 Body mass index [BMI] 30.0-30.9, adult
CPT/HCPCS: 43239; 88305; J2003; J2704; J7120